=== PATIENT | female | born 1940 | race Caucasian/White ===

== ENCOUNTER 2016-05-17 18:39 | Inpatient (IN) | payer MEDICARE, BC ==
[~2016-05-17] VITALS: Ht 162.6 cm; Wt 68.9 kg
[2016-05-17] MEDS ORDERED: CEFTRIAXONE 1GM BAG (ER ONLY) 50 ML IV ONE ×2 (19:00→19:17)
[2016-05-17] MEDS ORDERED: IV NS 0.9% 1,000 ML BAG IV ONE (19:00)
[2016-05-17] MEDS ORDERED: IPRATROPIUM NEB FS 0.5 MG/2.5 ML AMPUL.NEB NEB ONE (19:00)
[2016-05-17] MEDS ORDERED: AZITHROMYCIN 500 MG in IV D5W 250 ML IV ONE (19:00)
[2016-05-17] MEDS ORDERED: ALBUTEROL FS 2.5 MG/3 ML VIAL.NEB NEB ONE (19:00)
[2016-05-17] MEDS ORDERED: ONDANSETRON HCL/PF 4 MG/2 ML VIAL IVP ONE (19:00)
[2016-05-17] MEDS ORDERED: ACETAMINOPHEN 325 MG TABLET PO ONE (19:00)
[2016-05-17] MEDS ORDERED: MORPHINE SULFATE INJ 2 MG/ML DISP.SYRIN IV ONE (19:00)
[2016-05-17 19:11] LABS: BASOPHILS # (AUTO) 0.6 /CMM (0.0-0.2); BASOPHILS % (AUTO) 3.8 % (0.0-2.0); DIFF TOTAL % 100 %; EOSINOPHILS % (AUTO) 0.2 % (0.0-6.0); HEMATOCRIT 44 % (33-45); HEMOGLOBIN 14.6 g/dL (11.5-14.8); LYMPHOCYTES # (AUTO) 1.5 /CMM (0.8-4.8); LYMPHOCYTES % (AUTO) 9.9 % (20.0-44.0); MEAN CORPUSCULAR HEMOGLOBIN 28 PG (26.0-33.0); MEAN CORPUSCULAR HGB CONC 34 g/dl (31.0-36.0); MEAN CORPUSCULAR VOLUME 85 fL (82-100); MONOCYTES % (AUTO) 6.9 % (2.0-12.0); NEUTROPHILS # (AUTO) 12.1 /CMM (1.8-8.9); NEUTROPHILS % (AUTO) 79.2 % (43.0-81.0); PLATELET COUNT (AUTO) 237 /CMM (150-450); RED BLOOD CELL COUNT(AUTO) 5.15 MIL/uL (4.0-5.2); WHITE BLOOD COUNT (AUTO) 15.2 K/uL (4.3-11.0)
[2016-05-17] MEDS ORDERED: ALBUTEROL FS 2.5 MG/3 ML VIAL.NEB ONE (19:14)
[2016-05-17] MEDS ORDERED: IPRATROPIUM NEB FS 0.5 MG/2.5 ML AMPUL.NEB ONE ×2 (19:14→23:45)
[2016-05-17] MEDS ORDERED: MORPHINE SULFATE INJ 2 MG/ML DISP.SYRIN ONE (19:16)
[2016-05-17] MEDS ORDERED: ACETAMINOPHEN 325 MG TABLET ONE (19:17)
[2016-05-17] MEDS ORDERED: ONDANSETRON HCL/PF 4 MG/2 ML VIAL ONE (19:17)
[2016-05-17] MEDS ORDERED: IV SET PRIMARY 1 EA INFUS.SET MC ONE (19:17)
[2016-05-17] MEDS ORDERED: IV NS 0.9% 1,000 ML ONE ×2 (19:17→23:01)
[2016-05-17 19:19] LABS: CALCIUM, SERUM 9.1 mg/dL (8.5-10.1); CREATININE 0.9 mg/dL (0.6-1.3); POTASSIUM 4.2 mmol/L (3.5-5.1)
[2016-05-17 19:36] LABS: LACTIC ACID 1.7 mmol/L (0.4-2.0)
[2016-05-17] MEDS ORDERED: IV SET PRIMARY PUMP SET 1 EA INFUS.SET MC ONE ×2 (19:55→23:01)
[2016-05-17] MEDS ORDERED: IV NS 0.9% 1,000 ML IV PRN (22:39)
[2016-05-17] MEDS: AZITHROMYCIN 500 MG in IV D5W 250 ML IV SCH (22:58)
[2016-05-17] MEDS ORDERED: ACETAMINOPHEN 325 MG TABLET PO PRN (23:00)
[2016-05-17] MEDS ORDERED: IPRATROPIUM NEB FS 0.5 MG/2.5 ML AMPUL.NEB NEB PRN (23:00)
[2016-05-17] MEDS ORDERED: Z GUARD REMEDY 2 OZ OINT TP PRN (23:00)
[2016-05-17] MEDS ORDERED: ZOLPIDEM TARTRATE 5 MG TABLET PO PRN (23:00)
[2016-05-17] MEDS ORDERED: ALBUTEROL HALF STRENGTH 1.25 MG/3 ML VIAL.NEB NEB PRN (23:00)
[2016-05-17] MEDS ORDERED: MAGNESIUM HYDROXIDE 30 ML UDC PO PRN (23:00)
[2016-05-17] MEDS ORDERED: ENOXAPARIN SODIUM 40 MG/0.4 ML DISP.SYRIN SQ SCH (23:00)
[2016-05-17] MEDS ORDERED: MAG HYDROX/AL HYDROX/SIMETH 30 ML UDC PO PRN (23:00)
[2016-05-17] MEDS ORDERED: ONDANSETRON HCL/PF 4 MG/2 ML VIAL IVP PRN (23:00)
[2016-05-17] MEDS ORDERED: SECONDARY IV SET 1 EA INFUS.SET MC ONE (23:01)
[2016-05-17] MEDS ORDERED: CEFTRIAXONE 1 G VIAL ONE (23:08)
[2016-05-17] MEDS ORDERED: IV D5W 50 ML IV ONE (23:08)
[2016-05-17] MEDS ORDERED: ENOXAPARIN SODIUM 40 MG/0.4 ML DISP.SYRIN SQ ONE (23:08)
[2016-05-17] MEDS: CEFTRIAXONE 1 G in IV D5W 50 ML IV SCH (23:15)
[2016-05-17] MEDS ORDERED: ALBUTEROL HALF STRENGTH 1.25 MG/3 ML VIAL.NEB ONE (23:45)
[2016-05-18 01:03] LABS: ADD UA MICROSCOPIC NO; KETONES,URINE NEGATIVE (NEGATIVE); LEUKOCYTE ESTERASE ,URINE NEGATIVE (NEGATIVE)
[2016-05-18 06:35] LABS: BASOPHILS % (AUTO) 0.4 % (0.0-2.0); DIFF TOTAL % 100 %; EOSINOPHILS % (AUTO) 0.4 % (0.0-6.0); HEMATOCRIT 36 % (33-45); HEMOGLOBIN 11.9 g/dL (11.5-14.8); LYMPHOCYTES # (AUTO) 1.9 /CMM (0.8-4.8); LYMPHOCYTES % (AUTO) 19.3 % (20.0-44.0); MEAN CORPUSCULAR HEMOGLOBIN 28 PG (26.0-33.0); MEAN CORPUSCULAR HGB CONC 33 g/dl (31.0-36.0); MEAN CORPUSCULAR VOLUME 85 fL (82-100); MONOCYTES # (AUTO) 0.7 /CMM (0.1-1.30); MONOCYTES % (AUTO) 7.5 % (2.0-12.0); NEUTROPHILS % (AUTO) 72.4 % (43.0-81.0); PLATELET COUNT (AUTO) 213 /CMM (150-450); RED BLOOD CELL COUNT(AUTO) 4.22 MIL/uL (4.0-5.2); WHITE BLOOD COUNT (AUTO) 9.7 K/uL (4.3-11.0)
[2016-05-18 07:17] LABS: CALCIUM, SERUM 8.3 mg/dL (8.5-10.1); CREATININE 0.8 mg/dL (0.6-1.3); PHOSPHORUS 3.7 mg/dL (2.5-4.9)
[2016-05-18 08:00] VITALS: BP 151/90
[2016-05-18 08:02] LABS: ALBUMIN 2.4 g/dL (3.4-5.0); BILIRUBIN,TOTAL 0.4 mg/dL (0.2-1.0); TOTAL PROTEIN, SERUM 6.3 g/dL (6.4-8.2)
[2016-05-18] MEDS: HYDROCODONE/APAP 5/325MG 1 EACH TABLET PO PRN ×2 (08:08→19:39)
[2016-05-18] MEDS ORDERED: DULO60CA45 PO (08:42)
[2016-05-18] MEDS ORDERED: ALPR2TAB7 PO (08:42)
[2016-05-18] MEDS ORDERED: SECONDARY IV SET 1 EA INFUS.SET MC ONE ×2 (11:56→22:12)
[2016-05-18] MEDS: Magnesium 1GM/D5W 100ML PREMIX 100 ML IV SCH ×2 (12:01→12:40)
[2016-05-18 16:00] VITALS: BP 166/90
[2016-05-18] MEDS ORDERED: ATENOLOL 25 MG TABLET PO ONE (16:00)
[2016-05-18 16:41] LABS: THYROID STIMULATING HORMONE 0.191 uIU/mL (0.358-3.74)
[2016-05-18 20:04] VITALS: BP 161/98
[2016-05-18] MEDS ORDERED: ENOXAPARIN SODIUM 40 MG/0.4 ML DISP.SYRIN SQ SCH (21:00)
[2016-05-18] MEDS: CEFTRIAXONE 1 G in IV D5W 50 ML IV SCH (22:19)
[2016-05-18] MEDS: AZITHROMYCIN 500 MG in IV D5W 250 ML IV SCH (22:54)
[2016-05-19 08:00] VITALS: BP 154/94
[2016-05-19 08:05] LABS: CALCIUM, SERUM 8.8 mg/dL (8.5-10.1); CREATININE 0.7 mg/dL (0.6-1.3); POTASSIUM 4.1 mmol/L (3.5-5.1)
[2016-05-19 08:12] VITALS: BP 154/94
[2016-05-19] MEDS ORDERED: ATENOLOL 25 MG TABLET PO SCH (09:00)
[2016-05-19] MEDS ORDERED: ATEN50TA PO (12:19)
[2016-05-19] MEDS ORDERED: HYDR-552 PO (12:19)
[2016-05-19] MEDS ORDERED: LEVO500T15 PO (12:19)
[2016-05-19] MEDS ORDERED: LACTOBACILLUS RHAMNOSUS GG 1 EACH CAP.SPRINK PO SCH (17:00)
== END 2016-05-19 15:00 | disposition home or self-care (01) | DRG 871 ==
LOC: ER 18:40 → MED 21:38
PROVIDERS: ADMIT Contractor; ATTEND Contractor
DX: A41.9 Sepsis, unspecified organism (principal); J15.9 Unspecified bacterial pneumonia; S22.41XA Multiple fractures of ribs, right side, initial encounter for closed fracture; W19.XXXA Unspecified fall, initial encounter; Y92.009 Unspecified place in unspecified non-institutional (private) residence as the place of occurrence of the external cause; I25.10 Atherosclerotic heart disease of native coronary artery without angina pectoris; E78.5 Hyperlipidemia, unspecified; K44.9 Diaphragmatic hernia without obstruction or gangrene; I10 Essential (primary) hypertension; R91.1 Solitary pulmonary nodule
CPT/HCPCS: 36415; 71100-TC; 71250-TC; 80048-TC; 80053-TC; 80061-TC; 81000-TC; 83605-TC; 83735-TC; 84100-TC; 84443-TC; 85025-TC; 87040-TC; 87081-TC; 87086-TC; 87400; 94799-TC; A4606; J0456; J0696; J1650; J2270; J2405; J3475; J7030; J7060; Z7610

== ENCOUNTER 2018-12-02 17:57 | Inpatient (IN) | payer MEDICARE, BC ==
[~2018-12-02] VITALS: Ht 160 cm; Wt 68.0 kg
[~2018-12-02 17:57] MED LIST: ALPR2TAB7 PO; ATEN50TA PO; DULO60CA45 PO; HYDR-4384 PO; LEVO500T75 PO
--- NOTE | 2018-12-02 18:30 | NUR ---
bib ra 78 YEAR OLD FEMALE c/o sob and weakness for the past 8 days, no relief from levaquin. ALERT AND ORIENTED X4 BREATHING EVEN UNLABORED WITH PRODUCTIVE COUGH NOTED. SKIN INTACT. NOTED MODEL MAKER APPRENTICE IV SITE LEFT WRSIT 20G. WAITING TO BE SEEN BY
[2018-12-02] MEDS ORDERED: ONDANSETRON HCL/PF 4 MG/2 ML VIAL ONE (18:56)
[2018-12-02] MEDS ORDERED: MORPHINE SULFATE INJ 4 MG/ML DISP.SYRIN ONE (18:56)
[2018-12-02] MEDS ORDERED: IPRATROPIUM NEB FS 0.5 MG/2.5 ML AMPUL.NEB NEB ONE (19:00)
[2018-12-02] MEDS ORDERED: ALBUTEROL FS 2.5 MG/3 ML VIAL.NEB CONTNEB ONE (19:00)
[2018-12-02] MEDS ORDERED: IV NS 0.9% 1,000 ML BAG IV ONE (19:00)
[2018-12-02] MEDS ORDERED: MORPHINE SULFATE INJ 2 MG/ML DISP.SYRIN IV ONE (19:00)
[2018-12-02] MEDS ORDERED: ONDANSETRON HCL/PF 4 MG/2 ML VIAL IVP ONE (19:00)
[2018-12-02] MEDS ORDERED: ALBUTEROL FS 2.5 MG/3 ML VIAL.NEB ONE (19:03)
[2018-12-02] MEDS ORDERED: IPRATROPIUM NEB FS 0.5 MG/2.5 ML AMPUL.NEB ONE (19:03)
--- NOTE | 2018-12-02 19:08 | NUR ---
X-RAY TECH AT BEDSIDE
--- NOTE | 2018-12-02 19:10 | NUR ---
RT AT BEDSIDE TO GIVEN PATIENT BREATHING TX ORDERED
[2018-12-02 19:15] LABS: BASOPHILS # (AUTO) 0.1 /CMM (0.0-0.2); BASOPHILS % (AUTO) 1.2 % (0.0-2.0); EOSINOPHILS % (AUTO) 5.2 % (0.0-6.0); HEMATOCRIT 40 % (33-45); HEMOGLOBIN 13.2 g/dL (11.5-14.8); LYMPHOCYTES # (AUTO) 1.3 /CMM (0.8-4.8); LYMPHOCYTES % (AUTO) 14.5 % (20.0-44.0); MEAN CORPUSCULAR HGB CONC 33 g/dl (31.0-36.0); MEAN CORPUSCULAR VOLUME 88 fL (82-100); MONOCYTES # (AUTO) 0.9 /CMM (0.1-1.30); MONOCYTES % (AUTO) 9.6 % (2.0-12.0); NEUTROPHILS # (AUTO) 6.4 /CMM (1.8-8.9); NEUTROPHILS % (AUTO) 69.5 % (43.0-81.0); PLATELET COUNT (AUTO) 235 /CMM (150-450); RED BLOOD CELL COUNT(AUTO) 4.52 MIL/uL (4.0-5.2); WHITE BLOOD COUNT (AUTO) 9.2 K/uL (4.3-11.0)
[2018-12-02 19:36] LABS: CALCIUM, SERUM 9.1 mg/dL (8.5-10.1); CARBON DIOXIDE 27 mmol/L (21-32); CHLORIDE 105 mmol/L (98-107); GLUCOSE 91 mg/dL (74-106); POTASSIUM 4.3 mmol/L (3.5-5.1); SODIUM SERUM 140 mmol/L (136-145); UREA NITROGEN, BLOOD 17 mg/dL (7-18)
[2018-12-02 19:49] LABS: ALANINE AMINOTRANSFERASE 11 U/L (12-78); ALBUMIN 2.7 g/dL (3.4-5.0); ALKALINE PHOSPHATASE 79 U/L (46-116); ASPARTATE AMINOTRANSFERASE 22 U/L (15-37); B-TYPE NATRIURETIC PEPTIDE 198 PG/ML (0-125); BILIRUBIN,DIRECT 0.1 mg/dL (0.0-0.2); BILIRUBIN,TOTAL 0.4 mg/dL (0.2-1.0)
--- NOTE | 2018-12-02 20:22 | NUR ---
FLU SWAB SENT TO LAB
--- NOTE | 2018-12-02 21:30 | NUR ---
CALLED NURSING SUP. FOR TELE BED
--- NOTE | 2018-12-02 21:30 | NUR ---
VIKTORIYA PAGED, TORITO AUGUST CATTLE BRANDER GEOINT ANALYST
[2018-12-02] MEDS ORDERED: IPRATROPIUM BROMIDE 14 GM INHALER (or 12.9 GM) IH PRN (22:00)
[2018-12-02] MEDS ORDERED: ALBUTEROL FS 2.5 MG/0.5 ML VIAL.NEB NEB PRN (22:00)
[2018-12-02] MEDS ORDERED: NITROGLYCERIN 0.4 MG/TAB BOTTLE SL PRN (22:00)
[2018-12-02] MEDS ORDERED: PIPERACILLIN /TAZOBACTAM 3.375 G in IV D5W 50 ML IV ONE (22:00)
[2018-12-02] MEDS ORDERED: ENOXAPARIN SODIUM 40 MG/0.4 ML DISP.SYRIN SQ SCH (22:00)
[2018-12-02] MEDS ORDERED: PIPERACILLIN /TAZOBACTAM 3.375 G VIAL IV ONE (22:05)
--- NOTE | 2018-12-02 22:08 | NUR ---
BED 308-7
--- NOTE | 2018-12-02 22:10 | NUR ---
REPORT GIVEN TO ALEXANDRIA REES FOR SANJIV
--- NOTE | 2018-12-02 22:49 | NUR ---
OYSTER WORKER ADMITTING NOTES RECEIVED PATIENT FROM ER VIA ZULEMA. DX. CAP;CHF EXACERBATION. PATIENT IS ALERT AND ORIENTED X3, VERBALLY RESPONSIVE, ABLE TO MAKE NEEDS KNOWN. FAMILY AT BEDSIDE. BREATHING EVEN AND UNLABORED. NO SOB NOTED. ON 2LPM VIA NC. DENIES ANY PAIN OR DISCOMFORT. NO CP. NO N/V. IV ON LEFT WRIST INTACT AND PATENT. SKIN DRY AND WARM TO TOUCH. AFEBRILE. ORIENTED TO THE USE OF UNIT AMENITIES. INSTRUCTED ON THE USE OF CALL LIGHT. SKIN ASSESSMENT DONE WITH NO SKIN ISSUES FOUND. ALL BELONGINGS ACCOUNTED FOR. PATIENT IS AMBULATORY, MOSTLY INDEPENDENT WITH ADLS. ALL OTHER NEEDS ATTENDED TO. SAFETY MEASURES IN PLACE. CALL LIGHT WITHIN REACH. WILL CONTINUE TO MONITOR.
[2018-12-02 23:00] VITALS: BP 108/52
--- NOTE | 2018-12-02 23:00 | NUR ---
ALEXANDRIA PICHARDO NOTES PATIENT REFUSE TO HAVE GOWN ON AND PREFERS HER OWN CLOTHES ON. Addendum: 12/03/18 at 0501 by CABRERA GORDON RN ERROR: ALEXANDRIA PICHARDO TELE
[2018-12-03] VITALS: BP 139/70
--- NOTE | 2018-12-03 00:15 | NUR ---
PIG MACHINE SUPERVISOR NOTES PER RN IMAGING RAMAN UGARTE TO RESCHEDULE PATIENT'S ZOSYN TO 0600 SINCE PATIENT ALREADY RECEIVED ONE AT 2213. ORDER NOTED AND CARRIED OUT. WILL CONTINUE TO MONITOR.
[2018-12-03] MEDS ORDERED: PIPERACILLIN /TAZOBACTAM 3.375 G VIAL IV ONE (04:43)
--- NOTE | 2018-12-03 05:00 | NUR ---
BATTERY PLATE ASSEMBLER NOTES OFFERED TO PUT ON GOWN BUT PATIENT REFUSED. STILL WANTS OWN CLOTHES ON.
--- NOTE | 2018-12-03 05:25 | NUR ---
DATA SYSTEMS ANALYST NOTES PATIENT REQUESTED FOR NORCO DUE TO LEFT HIP PAIN. ACHING 6/10 ON A PAIN SCALE. INFORMED ORTHOTIC AIDE TORITO REGARDING PATIENT'S REQUEST WITH ORDER FOR NORCO 5-325MG PO X1 ONLY. ORDER NOTED AND CARRIED OUT. WILL CONTINUE TO MONITOR.
[2018-12-03] MEDS: HYDROCODONE/APAP 5/325MG 1 EACH TABLET PO PRN (05:37)
[2018-12-03] MEDS ORDERED: PIPERACILLIN /TAZOBACTAM 3.375 G in IV D5W 50 ML IV SCH ×3 (06:00)
[2018-12-03 06:52] LABS: ALANINE AMINOTRANSFERASE 14 U/L (12-78); ALBUMIN 2.5 g/dL (3.4-5.0); ALKALINE PHOSPHATASE 69 U/L (46-116); ASPARTATE AMINOTRANSFERASE 20 U/L (15-37); BILIRUBIN,TOTAL 0.4 mg/dL (0.2-1.0); CALCIUM, SERUM 8.3 mg/dL (8.5-10.1); CARBON DIOXIDE 28 mmol/L (21-32); CHLORIDE 106 mmol/L (98-107); CREATININE 1.1 mg/dL (0.6-1.3); GLUCOSE 84 mg/dL (74-106); MAGNESIUM 1.7 mg/dL (1.8-2.4); PHOSPHORUS 4.3 mg/dL (2.5-4.9); POTASSIUM 4.3 mmol/L (3.5-5.1); SODIUM SERUM 141 mmol/L (136-145); TOTAL PROTEIN, SERUM 6.4 g/dL (6.4-8.2); UREA NITROGEN, BLOOD 14 mg/dL (7-18)
--- NOTE | 2018-12-03 06:52 | NUR ---
ARMED GUARD CLOSING NOTES PATIENT RESTING IN BED. NO ACUTE CHANGES THROUGHOUT SHIFT. SR ON TELE MONITOR. BREATHING EVEN AND UNLABORED. NO SOB NOTED. TOLERATING ROOM AIR. NO COMPLAINTS OF PAIN OR DISCOMFORT. NORCO EFFECTIVE. IV ON THE LEFT WRIST INTACT AND PATENT. STILL WANTS TO HAVE HER OWN CLOTHES ON. ALL OTHER NEEDS ATTENDED TO. SAFETY MEASURES IN PLACE. CALL LIGHT WITHIN REACH. WILL ENDORSE TO ONCOMING NURSE FOR SANJIV.
[2018-12-03 07:00] LABS: CHOLESTEROL 169 mg/dL (<200); HDL CHOLESTEROL 58 mg/dL (40-60); LDL 94 mg/dL (0-99); THYROID STIMULATING HORMONE 0.449 uIU/mL (0.358-3.74); TRIGLYCERIDES 51 mg/dL (30-150)
--- NOTE | 2018-12-03 07:20 | NUR ---
ROOF TRUSS MACHINE TENDER OPENING NOTE RECEIVED PT IN BED, ALERT AND ORIENTED X4. DENIES CHEST PAIN, SOB, N/V, BREATHING IS EVEN AND UNLABORED ON ROOM AIR. PT ON RIPPLER AND IS SINUS RHYTHM, HR 74 AT THIS TIME. LEFT WRIST #20G IS PATENT, CLEAN, DRY AND INTACT. ASPIRATION PRECAUTIONS MAINTAINED. ALL NEEDS ATTENDED TO. BED IS LOCKED AND IN LOWEST POSITION, SIDE RAILS UP X2, BED ALARM ON, CALL LIGHT AND POSSESSIONS WITHIN REACH.
[2018-12-03 08:00] VITALS: BP 137/72
[2018-12-03] MEDS ORDERED: IPRATROPIUM NEB FS 0.5 MG/2.5 ML AMPUL.NEB NEB PRN (08:00)
[2018-12-03] MEDS: ATENOLOL 50 MG TABLET PO SCH (08:45)
[2018-12-03] MEDS: Magnesium 1GM/D5W 100ML PREMIX 100 ML IV SCH ×2 (08:45→09:00)
[2018-12-03] MEDS: FUROSEMIDE 40 MG/4 ML VIAL IV SCH (08:45)
--- NOTE | 2018-12-03 08:45 | NUR ---
MS RN NOTE PT REPORTS THAT SHE NO LONGER TAKES CYMBALTA AND NOW TAKES EFFEXOR BUT DOES NOT KNOW THE DOSE, SHE STATED SHE CAN CALL HER DAUGHTER JOHAN AND ASK FOR AN UPDATED MEDICATION LIST. PT REPORTS SHE TAKES ELIQUIS BUT ALSO DOES NOT KNOW THE DOSE WELL. WILL FOLLOW UP REGARDING MEDICATIONS
[2018-12-03] MEDS ORDERED: FUROSEMIDE 40 MG/4 ML VIAL IV SCH (09:00)
[2018-12-03] MEDS ORDERED: DULOXETINE HCL 30 MG CAPSULE.DR PO SCH (09:00)
--- NOTE | 2018-12-03 09:30 | NUR ---
MS RN NOTE LEFT WRIST IV FOUND TO BE LEAKING, NEW IV INSERTED AT THE RIGHT FA #22G, MEDICATIONS AND FLUIDS RESTARTED ORDERED.
--- NOTE | 2018-12-03 10:00 | NUR ---
MS RN NOTE PT STATES SHE IS TRYING TO PRODUCE SPUTUM SAMPLE BUT HAS NOT BEEN ABLE TO YET.
--- NOTE | 2018-12-03 10:30 | NUR ---
MS RN NOTE PILLAR MAN REPORTED THAT PT ACCIDENTLY PULLED OUT IV WHEN GETTING UP TO GO TO RESTROOM, WILL REINSERT NEW ONE SHORTLY AND RESUME ORDERED MEDICATIONS.
[2018-12-03] MEDS ORDERED: Magnesium 1GM/D5W 100ML PREMIX PIGGYBACK IV ONE (11:30)
[2018-12-03] MEDS ORDERED: Magnesium 1GM/D5W 100ML PREMIX 100 ML IV SCH (11:30)
--- NOTE | 2018-12-03 11:58 | NUR ---
MS RN NOTE CALLED AND LEFT MESSAGE FOR DAUGHTER JOHAN TO REQUEST UPDATED MEDICATION LIST FOR PATIENT, PROVIDED UNIT CALL BACK INFORMATION, AWAITING CALL BACK.
--- NOTE | 2018-12-03 12:15 | NUR ---
MS RN NOTE PER DAUGHTER JOHAN SHE WILL BRING IN PATIENTS MEDICATION TODAY BETWEEN 2-3.
[2018-12-03] MEDS: PIPERACILLIN /TAZOBACTAM 3.375 G in IV D5W 100 ML IV SCH ×2 (13:36→20:02)
--- NOTE | 2018-12-03 15:25 | NUR ---
MS RN NOTE PT PROVIDED NURSE WITH UPDATE LIST OF HOME MEDICATIONS AFTER CALLING HER PHARMACY, PAGED MED RECON NURSE MARTHA TO UPDATE HOME MEDS, PER MARTHA HE WILL BE UP SHORTLY, INFORMED PRIMARY HOSPITALIST AND REQUESTED HE REVIEW HOME MEDS AND RESTART APPROPRIATE AFTER THEY ARE ENTERED IN.
[2018-12-03] MEDS ORDERED: PRAV40TA3 PO (15:37)
[2018-12-03] MEDS ORDERED: APIX5TAB4 PO (15:37)
[2018-12-03] MEDS ORDERED: HYDR-4354 PO (15:37)
[2018-12-03] MEDS ORDERED: PANT40TA2 PO (15:37)
[2018-12-03] MEDS ORDERED: VENL75CA56 PO (15:37)
[2018-12-03 16:00] VITALS: BP 115/60
[2018-12-03] MEDS ORDERED: APIXABAN 5 MG TABLET PO SCH ×2 (17:00)
--- NOTE | 2018-12-03 17:06 | NUR ---
MS RN NOTE PT STILL UNABLE TO PRODUCE SPUTUM SAMPLE.
[2018-12-03] MEDS: APIXABAN 5 MG TABLET PO SCH (17:25)
--- NOTE | 2018-12-03 18:15 | NUR ---
MS RN CLOSING NOTE PT IN BED, ALERT AND ORIENTED X4. DENIES CHEST PAIN, SOB, N/V, BREATHING IS EVEN AND UNLABORED ON ROOM AIR. RIGHT FA #20G IS PATENT, CLEAN, DRY AND INTACT. ASSISTED WITH ADLS, ASPIRATION PRECAUTIONS MAINTAINED. ALL NEEDS ATTENDED TO. BED IS LOCKED AND IN LOWEST POSITION, SIDE RAILS UP X2, BED ALARM ON, CALL LIGHT AND POSSESSIONS WITHIN REACH. WILL ENDORSE TO BRANCH OFFICER NURSE FOR CONTINUITY OF CARE.
--- NOTE | 2018-12-03 19:30 | NUR ---
RN MS OPENING NOTES RECEIVED PT IN BED, AWAKE ALERT ORIENTED X4. BREATHING EVEN AND UNLABORED ON 2L O2 NC. NO COMPLAINT OF PAIN OR DISCOMFORT AT THIS TIME. IV ACCESS ON THE R FA 20G. FAMILY AT BEDSIDE. BED IN LOWEST LOCKED POSITION, CALL LIGHT WITHIN REACH AT ALL TIMES WILL CONTINUE TO MONITOR FREQUENTLY.
[2018-12-03 20:00] VITALS: BP 110/72
[2018-12-03] MEDS ORDERED: ENOXAPARIN SODIUM 40 MG/0.4 ML DISP.SYRIN SQ SCH (21:00)
[2018-12-03] MEDS ORDERED: ATORVASTATIN 10 MG TABLET PO SCH (22:00)
[2018-12-04] MEDS: PIPERACILLIN /TAZOBACTAM 3.375 G in IV D5W 100 ML IV SCH ×2 (03:33→12:42)
[2018-12-04] MEDS: HYDROCODONE/APAP 5/325MG 1 EACH TABLET PO PRN (05:05)
--- NOTE | 2018-12-04 06:12 | NUR ---
RN MS CLOSING NOTES PT REMAINS IN BED, SLEEPING, EASILY AROUSED TO NAME CALL. BREATHING EVEN AND UNLABORED ON 2L O2 NC. IN NO APPARENT PAIN OR DISCOMFORT. IV ACCESS ON THE R FA 20G. BED IN LOWEST LOCKED POSITION, STABLE UNCHANGED CONDITION DURING SHIFT, CALL LIGHT WITHIN REACH AT ALL TIMES WILL ENDORSE TO DAY NURSE FOR SANJIV
[2018-12-04 06:19] LABS: BASOPHILS # (AUTO) 0.1 /CMM (0.0-0.2); BASOPHILS % (AUTO) 1.3 % (0.0-2.0); EOSINOPHILS % (AUTO) 8.6 % (0.0-6.0); HEMATOCRIT 40 % (33-45); HEMOGLOBIN 13.5 g/dL (11.5-14.8); LYMPHOCYTES # (AUTO) 2.3 /CMM (0.8-4.8); MEAN CORPUSCULAR HGB CONC 34 g/dl (31.0-36.0); MEAN CORPUSCULAR VOLUME 87 fL (82-100); MONOCYTES % (AUTO) 9.1 % (2.0-12.0); NEUTROPHILS # (AUTO) 6.5 /CMM (1.8-8.9); PLATELET COUNT (AUTO) 286 /CMM (150-450); RED BLOOD CELL COUNT(AUTO) 4.65 MIL/uL (4.0-5.2); WHITE BLOOD COUNT (AUTO) 10.9 K/uL (4.3-11.0)
[2018-12-04 06:48] LABS: BILIRUBIN,TOTAL 0.5 mg/dL (0.2-1.0); CALCIUM, SERUM 9.1 mg/dL (8.5-10.1); CREATININE 1.3 mg/dL (0.6-1.3); PHOSPHORUS 4.9 mg/dL (2.5-4.9); TOTAL PROTEIN, SERUM 7.6 g/dL (6.4-8.2)
--- NOTE | 2018-12-04 08:00 | NUR ---
MS RN RECEIVED ON BED, AWAKE,ALERT,ORIENTED X4,NOT IN ANY FORM OF DISTRESS, RESPIRATIONS EVEN AND UNLABORED, NO SOB NOTED, LUNGS ARE DIMINISHED, ABDOMEN SOFT,POSITIVE BOWEL SOUNDS,DENIES PAIN AT THIS TIME,ALL NEEDS ATTENDED.
[2018-12-04 08:17] VITALS: BP 119/63
[2018-12-04] MEDS ORDERED: VENLAFAXINE XR 75 MG CAP.SR.24H PO SCH (09:00)
[2018-12-04] MEDS ORDERED: PANTOPRAZOLE 40 MG TABLET.DR PO SCH (09:00)
--- NOTE | 2018-12-04 09:30 | NUR ---
MS IBRAHIM BREAKFAST SERVED,DUE MEDS GIVEN,TOLERATED WELL.
[2018-12-04] MEDS: FUROSEMIDE 40 MG/4 ML VIAL IV SCH (09:37)
[2018-12-04 09:38] VITALS: BP 119/63
[2018-12-04] MEDS: ATENOLOL 50 MG TABLET PO SCH (09:38)
[2018-12-04] MEDS: APIXABAN 5 MG TABLET PO SCH (09:51)
--- NOTE | 2018-12-04 11:00 | NUR ---
MS RN WAS SEEN BY SHELDON LOPEZ W/ ORDER TO GO HOME TODAY W/ PRESCRIPTION.
--- NOTE | 2018-12-04 11:40 | NUR ---
MS RN PRESCRIPTION FAXED TO PHARMACY ,PATIENT AWARE, SPOKE TO SHELLY PHARMACIST.
[2018-12-04] MEDS ORDERED: AZIT250T13 PO (13:11)
[2018-12-04] MEDS ORDERED: AMOX500C2 PO (13:11)
--- NOTE | 2018-12-04 15:33 | NUR ---
MS RN WAITING FOR HER DAUGHTER TO PICK HER UP.
--- NOTE | 2018-12-04 16:10 | NUR ---
MS RN PATIENT WENT HOME ACCOMPANIED BY DAUGHTER, ALL NEEDS ATTENDED.
== END 2018-12-04 16:00 | disposition home or self-care (01) | DRG 202 ==
LOC: ER 17:57 → TELE 21:54 → MED 12-03 08:28
PROVIDERS: ADMIT Registered Nurse; ATTEND Hospitalist
DX: J20.9 Acute bronchitis, unspecified (principal); I50.33 Acute on chronic diastolic (congestive) heart failure; E44.0 Moderate protein-calorie malnutrition; I11.0 Hypertensive heart disease with heart failure; E78.5 Hyperlipidemia, unspecified; Z86.711 Personal history of pulmonary embolism; E83.42 Hypomagnesemia; E66.9 Obesity, unspecified; R91.1 Solitary pulmonary nodule; Z68.26 Body mass index [BMI] 26.0-26.9, adult; K44.9 Diaphragmatic hernia without obstruction or gangrene; Z90.710 Acquired absence of both cervix and uterus; Z95.828 Presence of other vascular implants and grafts
CPT/HCPCS: 36415; 71045-TC; 74018; 80048-TC; 80053-TC; 80061-TC; 80076-TC; 82550-TC; 83605-TC; 83735-TC; 83880; 84100-TC; 84443-TC; 84484-TC; 85025-TC; 87040-TC; 87081-TC; 93307-TC; G0378; J1650; J1940; J2270; J2405; J2543; J3475; J7030; J7060

== ENCOUNTER 2019-04-02 13:01 | Inpatient (IN) | payer MEDICARE, BC ==
[~2019-04-02] VITALS: Ht 162.6 cm; Wt 65.8 kg
[~2019-04-02 13:01] MED LIST changes: -ALPR2TAB7 PO; +AMOX500C2 PO; +APIX5TAB4 PO; -ATEN50TA PO; +AZIT250T13 PO; -DULO60CA45 PO; +HYDR-4354 PO; -HYDR-4384 PO; -LEVO500T75 PO; +PANT40TA2 PO; +PRAV40TA3 PO; +VENL75CA56 PO
[2019-04-02] MEDS ORDERED: HYDROMORPHONE 1 MG/1 ML DISP.SYRIN ONE ×2 (13:40→14:40)
[2019-04-02] MEDS ORDERED: ONDANSETRON HCL/PF 4 MG/2 ML VIAL ONE (13:40)
--- NOTE | 2019-04-02 13:50 | NUR ---
BIB RA 878,TRIPPED/FELL AT A Moped PARKING LOT,LEFT KNEE SECURED W/ AIR SPLIT FENTANYL 50 MG IVP X 2 GIVEN COUPON COLLECTION CLERK. ON ROOM AIR, BREATHING EVENLY AND UNLABORED. CONNECTED TO THE MONITOR AND PULSE OX. KEPT COMFORTABLE, WILL CONTINUE TO MONITOR ACCORDINGLY.
--- NOTE | 2019-04-02 13:52 | NUR ---
WILLIE FITZGERALD ([facility]LY [facility], LATER [facility]). [phone].
[2019-04-02 13:54] LABS: BASOPHILS # (AUTO) 0.1 /CMM (0.0-0.2); EOSINOPHILS % (AUTO) 2.4 % (0.0-6.0); HEMATOCRIT 36 % (33-45); HEMOGLOBIN 11.6 g/dL (11.5-14.8); LYMPHOCYTES # (AUTO) 1.6 /CMM (0.8-4.8); LYMPHOCYTES % (AUTO) 18.1 % (20.0-44.0); MEAN CORPUSCULAR HGB CONC 33 g/dl (31.0-36.0); MEAN CORPUSCULAR VOLUME 89 fL (82-100); MONOCYTES # (AUTO) 0.6 /CMM (0.1-1.30); MONOCYTES % (AUTO) 6.9 % (2.0-12.0); NEUTROPHILS # (AUTO) 6.1 /CMM (1.8-8.9); NEUTROPHILS % (AUTO) 71.6 % (43.0-81.0); PLATELET COUNT (AUTO) 254 /CMM (150-450); RED BLOOD CELL COUNT(AUTO) 4.01 MIL/uL (4.0-5.2); WHITE BLOOD COUNT (AUTO) 8.6 K/uL (4.3-11.0)
[2019-04-02] MEDS ORDERED: CHOL200026 PO (13:55)
[2019-04-02] MEDS ORDERED: LISI10TA5 PO (13:56)
[2019-04-02] MEDS ORDERED: HYDROMORPHONE 1 MG/1 ML DISP.SYRIN IV ONE ×2 (14:00→15:00)
[2019-04-02] MEDS ORDERED: ONDANSETRON HCL/PF - ER 4 MG/2 ML VIAL IV ONE (14:00)
[2019-04-02 14:02] LABS: CALCIUM, SERUM 8.7 mg/dL (8.5-10.1); CREATININE 0.9 mg/dL (0.6-1.3)
--- NOTE | 2019-04-02 14:36 | NUR ---
CALLED NURSING SUP FOR M/S BED.
--- NOTE | 2019-04-02 14:42 | NUR ---
NURSING SUP GAVE M/S BED 308-2.
--- NOTE | 2019-04-02 14:46 | NUR ---
SECOND ATTEMPT OF CONTACTING ORTHO RESIDENTIAL SUBSTANCE ABUSE COUNSELOR. FAUZIA.
--- NOTE | 2019-04-02 14:59 | NUR ---
Report given to Monisha IBRAHIM for baylee.
[2019-04-02] MEDS ORDERED: ONDANSETRON HCL/PF 4 MG/2 ML VIAL IVP PRN (15:30)
--- NOTE | 2019-04-02 15:42 | NUR ---
Patient discharged to home in stable condition. Written and verbal after care instructions given. Patient verbalizes understanding of instruction.
--- NOTE | 2019-04-02 15:43 | NUR ---
admitted to [facility] going to room 308-2. Marc becerra DNP admitting
--- NOTE | 2019-04-02 15:50 | NUR ---
MS ADMITTING NOTES ADMITTED PT FROM ER WITH DX LT KNEE SUPRACONDYLAR FX.PT IS ALERT AND ORIENTED X4.VERBALLY RESPONSIVE.ROOM [id number] AND USE OF CALL LIGHT PROVIDED.PT IS UPSET AND CRIED THAT SHE FELL TWICE AFTER SHE JUST HAD HER RECENT LT HIP SX IN 2018. EMOTIONAL SUPPORT AND ACTIVE LISTENING PROVIDED.PT VERBALIZED SHE HAS A DAUGHTER WHO TAKES CARE OF HER WHO HAS DEMENTIA AND HAS TO TAKE CARE OF THE TWO OF THEM.AWAITING FOR DR JOSEPH(ORTHO) TO SEE THE PT.CALL LIGHT PLACED WITHIN REACH.
[2019-04-02 16:00] VITALS: BP 146/76
[2019-04-02 16:30] VITALS: BP 146/76
[2019-04-02] MEDS: HYDROMORPHONE INJ 2 MG/ML DISP.SYRIN IV PRN ×2 (16:44→22:00)
[2019-04-02] MEDS: PANTOPRAZOLE 40 MG VIAL IV SCH (16:44)
[2019-04-02] MEDS: IV NS 0.9% 1,000 ML IV PRN (17:47)
--- NOTE | 2019-04-02 18:30 | NUR ---
PT RESTING IN BED DENYING ANY PAIN OR DISTRESS.WITH ONGOING IVF OF NS AT 50 ML/HR INFUSING WELL.WILL MONITOR.ENDORSED TO NIGHT NURSE CARE.CALL LIGHT PLACED WITHIN REACH.
[2019-04-02 20:03] VITALS: BP 93/52
--- NOTE | 2019-04-02 20:05 | NUR ---
MS RN OPENING NOTES Patient currently resting in bed A/O x4, able to make all needs known. Stable on room air with breathing even and unlabored, no SOB noted. Currently no complaints of pain or discomfort. IV located on LFA #20 running NS @ 50ml/ hr. No signs of acute distress noted. Safety precautions are in place with bed in lowest position, breaks on, call light within reach, side rails up x2. Will continue to monitor.
[2019-04-02] MEDS: ENOXAPARIN SODIUM 30 MG/0.3 ML DISP.SYRIN SQ SCH (21:00)
[2019-04-02 21:54] VITALS: BP 116/60
--- NOTE | 2019-04-02 22:05 | NUR ---
MS RN NOTES DID NOT GIVE ENOXAPARIN SHOT PER MD DUE TO SURGERY. WILL CONTINUE TO MONITOR.
[2019-04-03] MEDS: HYDROMORPHONE INJ 2 MG/ML DISP.SYRIN IV PRN ×3 (03:11→18:01)
[2019-04-03 06:26] LABS: BASOPHILS # (AUTO) 0.1 /CMM (0.0-0.2); BASOPHILS % (AUTO) 1.1 % (0.0-2.0); EOSINOPHILS % (AUTO) 1.1 % (0.0-6.0); HEMATOCRIT 30 % (33-45); HEMOGLOBIN 10.4 g/dL (11.5-14.8); LYMPHOCYTES # (AUTO) 1.9 /CMM (0.8-4.8); LYMPHOCYTES % (AUTO) 19.1 % (20.0-44.0); MEAN CORPUSCULAR HGB CONC 34 g/dl (31.0-36.0); MEAN CORPUSCULAR VOLUME 89 fL (82-100); MONOCYTES # (AUTO) 1.1 /CMM (0.1-1.30); MONOCYTES % (AUTO) 10.8 % (2.0-12.0); NEUTROPHILS # (AUTO) 6.7 /CMM (1.8-8.9); NEUTROPHILS % (AUTO) 67.9 % (43.0-81.0); PLATELET COUNT (AUTO) 244 /CMM (150-450); RED BLOOD CELL COUNT(AUTO) 3.44 MIL/uL (4.0-5.2); WHITE BLOOD COUNT (AUTO) 9.9 K/uL (4.3-11.0)
[2019-04-03 06:33] LABS: CALCIUM, SERUM 8.6 mg/dL (8.5-10.1); CARBON DIOXIDE 25 mmol/L (21-32); CHLORIDE 106 mmol/L (98-107); CREATININE 1.4 mg/dL (0.6-1.3); GLUCOSE 116 mg/dL (74-106); MAGNESIUM 1.7 mg/dL (1.8-2.4); PHOSPHORUS 4.7 mg/dL (2.5-4.9); POTASSIUM 5.2 mmol/L (3.5-5.1); SODIUM SERUM 143 mmol/L (136-145); UREA NITROGEN, BLOOD 26 mg/dL (7-18)
[2019-04-03 06:36] LABS: CHOLESTEROL 173 mg/dL (<200); HDL CHOLESTEROL 81 mg/dL (40-60); LDL 80 mg/dL (0-99); TRIGLYCERIDES 68 mg/dL (30-150)
--- NOTE | 2019-04-03 06:37 | NUR ---
MS RN CLOSING NOTES PATIENT CURRENTLY RESTING IN BED A/O X4. ON 2L OF O2 VIA NC BREATHING EVEN AND UNLABORED, NO SOB NOTED. NO SIGNS OF ACUTE DISTRESS. NO CURRENT COMPLAINTS OF PAIN OR DISCOMFORT. IV LOCATED ON L HAND #20 RUNNING NS @ 50 ML/ HR. ALL NEEDS WERE MET THROUGHOUT THE NIGHT. PATIENT WAS KEPT CLEAN AND DRY. SAFETY PRECAUTIONS IN PLACE WITH BED IN LOWEST POSITION, CALL LIGHT WITHIN REACH, BREAKS ON, AND SIDE RAILS UP X2. WILL ENDORSE TO ONCOMING SHIFT ABOUT SANJIV.
--- NOTE | 2019-04-03 07:34 | NUR ---
RN OPENING NOTES Patient received on 2L nasal cannula, no sob noted, patient denies pain at this time and remains a/o x4. Regular diet and will be NPO at midnight tonight. L hand 20 NS @ 50 mo per hour. Patient denies discomfort with L knee. Bed at the lowest setting, call light within reach, side rails up x2.
[2019-04-03 08:00] VITALS: BP 113/48
[2019-04-03] MEDS: ENOXAPARIN SODIUM 30 MG/0.3 ML DISP.SYRIN SQ SCH (08:29)
[2019-04-03] MEDS: PANTOPRAZOLE 40 MG VIAL IV SCH (08:36)
[2019-04-03] MEDS: Magnesium 1GM/D5W 100ML PREMIX 100 ML IV SCH ×2 (10:50→11:53)
[2019-04-03 15:44] LABS: CARBON DIOXIDE 23 mmol/L (21-32); CHLORIDE 104 mmol/L (98-107); CREATININE 1.4 mg/dL (0.6-1.3); GLUCOSE 117 mg/dL (74-106); SODIUM SERUM 136 mmol/L (136-145); UREA NITROGEN, BLOOD 28 mg/dL (7-18)
[2019-04-03 16:00] VITALS: BP 105/56
--- NOTE | 2019-04-03 18:11 | NUR ---
RN CLOSING NOTES Patient remains on 2L nasal cannula, no sob noted, a/o x4 and denies pain at this time. Plan is to have patient NPO after midnight. L hand #20 with NS @ 50 ml per hour. ORIF surgery scheduled tomorrow. Bed at the lowest setting, call light within reach, side rails up x2. Will give report to NOC RN for SANJIV bedside.
[2019-04-03 19:30] VITALS: BP 125/88
--- NOTE | 2019-04-03 19:33 | NUR ---
ms lisa initial notes received report from am nurse while doing our rounds and saw pt in bed in sitting position with side rials x2 up and eating at this time . denies any pain or any discomfort. still with IVF of NS at 50ml/hr infusing on her left hand no redness noted. left knee still swollen from s/p trip and fall. Family at the bedside at this time and asking what time is the schedule for surgery. i told them possible the schedule will come out at midnight and i will let them know. pt stated its ok she will call them . will continue monitoring.
[2019-04-03 20:00] VITALS: BP 125/58
--- NOTE | 2019-04-04 | NUR ---
ms lisa notes pt sleeping comfortably in bed without any acute distress noted. IVF still infusing. no signs of any discomfort as well. pt NPO at this time,. for surgery in am. kept her warm and comfortable at all times. will continue monitoring. place call light at reach.
[2019-04-04] MEDS: IV NS 0.9% 1,000 ML IV PRN (00:11)
[2019-04-04] MEDS: HYDROMORPHONE INJ 2 MG/ML DISP.SYRIN IV PRN ×3 (04:09→20:09)
[2019-04-04 06:20] LABS: BASOPHILS % (AUTO) 0.4 % (0.0-2.0); EOSINOPHILS % (AUTO) 1.6 % (0.0-6.0); HEMATOCRIT 26 % (33-45); HEMOGLOBIN 8.7 g/dL (11.5-14.8); LYMPHOCYTES # (AUTO) 1.3 /CMM (0.8-4.8); LYMPHOCYTES % (AUTO) 13.5 % (20.0-44.0); MEAN CORPUSCULAR HGB CONC 33 g/dl (31.0-36.0); MEAN CORPUSCULAR VOLUME 88 fL (82-100); MONOCYTES # (AUTO) 1.3 /CMM (0.1-1.30); MONOCYTES % (AUTO) 12.7 % (2.0-12.0); NEUTROPHILS # (AUTO) 7.1 /CMM (1.8-8.9); NEUTROPHILS % (AUTO) 71.8 % (43.0-81.0); PLATELET COUNT (AUTO) 187 /CMM (150-450); RED BLOOD CELL COUNT(AUTO) 2.96 MIL/uL (4.0-5.2); WHITE BLOOD COUNT (AUTO) 9.9 K/uL (4.3-11.0)
[2019-04-04 06:25] LABS: ALBUMIN 2.4 g/dL (3.4-5.0); BILIRUBIN,TOTAL 0.3 mg/dL (0.2-1.0); CALCIUM, SERUM 8.1 mg/dL (8.5-10.1); CREATININE 1.1 mg/dL (0.6-1.3); MAGNESIUM 2.3 mg/dL (1.8-2.4); PHOSPHORUS 3.2 mg/dL (2.5-4.9); POTASSIUM 5.1 mmol/L (3.5-5.1); TOTAL PROTEIN, SERUM 5.9 g/dL (6.4-8.2)
--- NOTE | 2019-04-04 07:00 | NUR ---
ms vulnerability assessment analyst closing notes pt awake and alert and she 's aware that she's going for surgery today. Stable rick the night and slept well . pain meds given around 4 am for her pain.kept her warm and comfortable at all times. will endorse to am nurse for continuity of care. place call light at reach.
[2019-04-04] MEDS ORDERED: ANESTHESIA TRAY IN PYXIS 1 EA TRAY MC ONE (07:06)
[2019-04-04] MEDS ORDERED: BUPIVACAINE 0.5 % PF 150 MG/30 ML VIAL ONE (07:07)
[2019-04-04] MEDS ORDERED: BACITRACIN 50000 UNITS/VIAL ONE (07:07)
--- NOTE | 2019-04-04 07:11 | NUR ---
RN OPENING NOTES Patient received on 2L nasal cannula, no sob noted, patient denies pain at this time and remains a/o x4. patient is due for surgery and all paper works are signed. NPO since midnight. L hand 20 NS @ 50 ml per hour. Bed at the lowest setting, call light within reach, side rails up x2.
[2019-04-04] MEDS ORDERED: MIDAZOLAM HCL 2 MG/2ML VIAL ONE (07:36)
[2019-04-04] MEDS ORDERED: FENTANYL PF 100MCG/2ML AMPUL ONE (07:36)
[2019-04-04] MEDS ORDERED: BUPIVACAINE 0.25% 75 MG/30 ML VIAL ONE (07:37)
[2019-04-04] MEDS ORDERED: SEVOFLURANE 250 ML BOTTLE IH ONE (07:37)
[2019-04-04] MEDS ORDERED: DESFLURANE 240 ML BOTTLE IH ONE (07:37)
[2019-04-04] MEDS ORDERED: PROPOFOL 100 ML ONE (07:38)
[2019-04-04 08:06] VITALS: BP 106/53
[2019-04-04] MEDS: ENOXAPARIN SODIUM 30 MG/0.3 ML DISP.SYRIN SQ SCH (09:00)
[2019-04-04] MEDS: PANTOPRAZOLE 40 MG VIAL IV SCH (09:00)
[2019-04-04] MEDS ORDERED: NS 0.9% IV ONE (09:30)
[2019-04-04] MEDS ORDERED: TRANEXAMIC ACID IV ONE (09:30)
[2019-04-04] MEDS ORDERED: IV LR 1000 ML 1,000 ML IV PRN (11:30)
[2019-04-04 11:53] LABS: BASOPHILS % (AUTO) 0.3 % (0.0-2.0); EOSINOPHILS % (AUTO) 0.2 % (0.0-6.0); HEMATOCRIT 28 % (33-45); LYMPHOCYTES # (AUTO) 0.9 /CMM (0.8-4.8); LYMPHOCYTES % (AUTO) 5.9 % (20.0-44.0); MEAN CORPUSCULAR HGB CONC 32 g/dl (31.0-36.0); MEAN CORPUSCULAR VOLUME 90 fL (82-100); MONOCYTES # (AUTO) 0.7 /CMM (0.1-1.30); MONOCYTES % (AUTO) 4.4 % (2.0-12.0); NEUTROPHILS # (AUTO) 13.5 /CMM (1.8-8.9); NEUTROPHILS % (AUTO) 89.2 % (43.0-81.0); PLATELET COUNT (AUTO) 172 /CMM (150-450); RED BLOOD CELL COUNT(AUTO) 3.13 MIL/uL (4.0-5.2); WHITE BLOOD COUNT (AUTO) 15.1 K/uL (4.3-11.0)
[2019-04-04] MEDS: CEFAZOLIN 2 GM in IV D5W 100 ML IV SCH ×2 (14:59→22:48)
[2019-04-04 16:00] VITALS: BP 121/66
--- NOTE | 2019-04-04 19:15 | NUR ---
MS RN NOTES RECEIVED ON BED S/P KNEE SURGERY THIS MORNING,DRESSING INTACT AND DRY,DVT PUMP IN USED ON RIGHT LEG,ON GEL BED FOR SKIN MANAGEMENT.RAJAN CATH IN PLACE DRAINING YELLOWISH OUTPUT.IVF LR INFUSING VIA IV PUMP ON LEFT HAND,SITE PATENT.CLAIMED PAIN BUT WAS JUST MEDICATED BY DAY NURSE FOR PAIN.CALL LIGHT IN REACH,NEEDS ANTICIPATED.
--- NOTE | 2019-04-04 19:15 | NUR ---
RN CLOSING NOTES Patient remains on 2l nasal cannula, no sob noted, patient denies pain at this time. Patients lower leg elevated the whole time. Bed at the lowest setting, call light within reach, side rails up x2. Will give report to NOC RN for SANJIV bedside.
[2019-04-04 20:00] VITALS: BP 113/67
--- NOTE | 2019-04-04 20:09 | NUR ---
MS RN NOTES C/O LEFT KNEE PAIN 9/10 ON PAIN SCALE,MEDICATED WITH DILAUDID 1MG IV FOR SEVERE PAIN ORDERED.
[2019-04-04] MEDS: HYDROCODONE/APAP 5/325MG 1 EACH TABLET PO PRN (21:41)
--- NOTE | 2019-04-04 21:41 | NUR ---
MS RN NOTES STILL IN PAIN 7/10 ON PAIN SCALE, MEDICATED WITH NORCO 5/325MG,2 TAB PO ORDERED
--- NOTE | 2019-04-05 00:30 | NUR ---
MS RN NOTES NOTED PATIENT KEPT ON MOVING,IV SITE INFILTRATED,NEW SALINE LOCK PLACE ON LEFT WRIST #22,SAME IVF INFUSING.
[2019-04-05] MEDS: HYDROMORPHONE INJ 2 MG/ML DISP.SYRIN IV PRN ×3 (00:45→13:14)
--- NOTE | 2019-04-05 00:45 | NUR ---
MS RN NOTES PAIN MANAGEMENT C/O LEFT KNEE PAIN 8/10 ON PAIN SCALE.MEDICATED WITH DILAUDID 1MG IV ORDERED.
--- NOTE | 2019-04-05 06:06 | NUR ---
MS RN NOTES ON BED SLEEPING,AROUSABLE TO VERBAL STIMULI,NO SOB,IVF IN PROGRESS ON RIGHT WRIST,SITE PATENT.DVT PUMP IN USED ON RIGHT LEG.IV ABX TOLERATED,PAIN MANAGEMENT EFFECTIVE.IN NO ACUTE DISTRESS.CALL LIGHT IN REACH,NEEDS ATTENDED.WILL ENDORSE TO DAY NURSE FOR SANJIV.
[2019-04-05 06:58] LABS: BASOPHILS % (AUTO) 0.3 % (0.0-2.0); EOSINOPHILS % (AUTO) 0.2 % (0.0-6.0); HEMATOCRIT 22 % (33-45); HEMOGLOBIN 7.4 g/dL (11.5-14.8); LYMPHOCYTES # (AUTO) 2.1 /CMM (0.8-4.8); LYMPHOCYTES % (AUTO) 17.8 % (20.0-44.0); MEAN CORPUSCULAR HGB CONC 34 g/dl (31.0-36.0); MEAN CORPUSCULAR VOLUME 87 fL (82-100); MONOCYTES # (AUTO) 1.7 /CMM (0.1-1.30); MONOCYTES % (AUTO) 13.9 % (2.0-12.0); NEUTROPHILS # (AUTO) 8.1 /CMM (1.8-8.9); NEUTROPHILS % (AUTO) 67.8 % (43.0-81.0); PLATELET COUNT (AUTO) 178 /CMM (150-450); RED BLOOD CELL COUNT(AUTO) 2.52 MIL/uL (4.0-5.2); WHITE BLOOD COUNT (AUTO) 11.9 K/uL (4.3-11.0)
[2019-04-05 07:01] LABS: CALCIUM, SERUM 7.5 mg/dL (8.5-10.1); CREATININE 0.8 mg/dL (0.6-1.3); POTASSIUM 4.9 mmol/L (3.5-5.1)
--- NOTE | 2019-04-05 07:30 | NUR ---
RN OPENING NOTES RECEIVED PATIENT IN BED RESTING COMFORTABLY IN MODERATE HIGH BACK REST. A/O X4. NO SIGNS OF DISTRESS NOTED AT THIS TIME. IV ACCESS ON RIGHT WRIST #22, SL. PATENT AND INTACT. SAFETY MEASURES IN PLACE, BED IN LOW LOCKED POSITION WITH SIDE RAILS UP X2. CALL LIGHT WITHIN EASY REACH. WILL CONTINUE TO MONITOR.
[2019-04-05 08:00] VITALS: BP 103/64
[2019-04-05] MEDS: PANTOPRAZOLE 40 MG TABLET.DR PO SCH (08:12)
[2019-04-05] MEDS ORDERED: ENOXAPARIN SODIUM 40 MG/0.4 ML DISP.SYRIN SQ SCH (09:00)
--- NOTE | 2019-04-05 12:00 | NUR ---
RN NOTES REMOVED PATIENTS RAJAN CATHETER USING ASEPTIC TECHNIQUE, PATIENT VOIDED, NO SIGNS OF DISTRESS. WILL CONTINUE TO MONITOR.
[2019-04-05 15:07] LABS: BASOPHILS # (AUTO) 0.1 /CMM (0.0-0.2); BASOPHILS % (AUTO) 0.7 % (0.0-2.0); EOSINOPHILS % (AUTO) 0.8 % (0.0-6.0); HEMATOCRIT 24 % (33-45); HEMOGLOBIN 7.7 g/dL (11.5-14.8); LYMPHOCYTES % (AUTO) 15.5 % (20.0-44.0); MEAN CORPUSCULAR HGB CONC 33 g/dl (31.0-36.0); MEAN CORPUSCULAR VOLUME 89 fL (82-100); MONOCYTES # (AUTO) 1.8 /CMM (0.1-1.30); MONOCYTES % (AUTO) 13.7 % (2.0-12.0); NEUTROPHILS % (AUTO) 69.3 % (43.0-81.0); PLATELET COUNT (AUTO) 203 /CMM (150-450); RED BLOOD CELL COUNT(AUTO) 2.65 MIL/uL (4.0-5.2); WHITE BLOOD COUNT (AUTO) 12.9 K/uL (4.3-11.0)
[2019-04-05 16:08] VITALS: BP 111/64
[2019-04-05] MEDS: APIXABAN 5 MG TABLET PO SCH (16:58)
[2019-04-05] MEDS: HYDROCODONE/APAP 5/325MG 1 EACH TABLET PO PRN (17:04)
[2019-04-05] MEDS: ACETAMINOPHEN 325 MG TABLET PO PRN (18:38)
--- NOTE | 2019-04-05 18:41 | NUR ---
RN CLOSING NOTES PATIENT IN BED RESTING COMFORTABLY IN MODERATE HIGH BACK REST. A/O X4. NO SIGNS OF DISTRESS NOTED THROUGHOUT THE SHIFT. IV ACCESS ON RIGHT WRIST #22, SL. PATENT AND INTACT. SAFETY MEASURES IN PLACE, BED IN LOW LOCKED POSITION WITH SIDE RAILS UP X2. CALL LIGHT WITHIN EASY REACH. WILL ENDORSE TO CONVERSION WORKER NURSE FOR SANJIV.
--- NOTE | 2019-04-05 19:30 | NUR ---
MS RN NOTES RECEIVED ON BED A/O X4,S/O LEFT KNEE SURGERY YESTERDAY,DRESSING INTACT AND DRY,KNEE IMMOBILIZER IN USED.DVT PUMP IN USED ON RIGHT LEG,DAYSHIFT STARTED LOVENOX FOR DVT PROHYLAXIS.SALINE LOCK RIGHT WRIST INTACT AND PATENT.GEL BED IN USED FOR SKIN MANAGEMENT.PATIENT SAYS SHE FEELS BETTER TODAY.IN NO ACUTE DISTRESS.CALL LIGHT IN REACH,NEEDS ANTICIPATED.
[2019-04-05 20:00] VITALS: BP 108/75
--- NOTE | 2019-04-05 20:30 | NUR ---
MS RN NOTES SEEN BY DANDRE MEYER,NO NEW ORDERS NOTED.
[2019-04-05 21:19] VITALS: BP 108/75
--- NOTE | 2019-04-06 01:00 | NUR ---
MS RN NOTES SLEEPING,KEPT WARM AND COMFORTABLE.
--- NOTE | 2019-04-06 03:00 | NUR ---
MS RN NOTES SLEEPING,KEPT WARM
--- NOTE | 2019-04-06 06:00 | NUR ---
MS RN NOTES WELL RESTED THRU OUT SHIFT,NO COMPLAINTS OF PAIN,SNOORING WHILE ASLEEP.
--- NOTE | 2019-04-06 06:19 | NUR ---
MS RN NOTES SLEPT WELL,TO START AMBULATION TODAY BY PT,NONE WEIGHT BEARING ON LEFT LEG.FOR D/C PLANNING TO SNF FOR REHAB.IN NO ACUTE DISTRESS.WILL ENDORSE TO DAY NURSE FOR SANJIV.
[2019-04-06 06:53] LABS: BASOPHILS # (AUTO) 0.1 /CMM (0.0-0.2); BASOPHILS % (AUTO) 0.9 % (0.0-2.0); HEMATOCRIT 23 % (33-45); HEMOGLOBIN 7.6 g/dL (11.5-14.8); LYMPHOCYTES # (AUTO) 1.6 /CMM (0.8-4.8); LYMPHOCYTES % (AUTO) 15.2 % (20.0-44.0); MEAN CORPUSCULAR HGB CONC 34 g/dl (31.0-36.0); MEAN CORPUSCULAR VOLUME 89 fL (82-100); MONOCYTES # (AUTO) 1.3 /CMM (0.1-1.30); MONOCYTES % (AUTO) 12.3 % (2.0-12.0); NEUTROPHILS # (AUTO) 7.1 /CMM (1.8-8.9); NEUTROPHILS % (AUTO) 69.6 % (43.0-81.0); PLATELET COUNT (AUTO) 208 /CMM (150-450); RED BLOOD CELL COUNT(AUTO) 2.55 MIL/uL (4.0-5.2); WHITE BLOOD COUNT (AUTO) 10.2 K/uL (4.3-11.0)
[2019-04-06 06:57] LABS: CALCIUM, SERUM 8.1 mg/dL (8.5-10.1); CREATININE 0.8 mg/dL (0.6-1.3); POTASSIUM 4.5 mmol/L (3.5-5.1)
[2019-04-06 08:23] VITALS: BP 140/68
[2019-04-06] MEDS: PANTOPRAZOLE 40 MG TABLET.DR PO SCH (08:52)
[2019-04-06] MEDS: HYDROCODONE/APAP 5/325MG 1 EACH TABLET PO PRN ×2 (08:52→21:06)
[2019-04-06] MEDS: APIXABAN 5 MG TABLET PO SCH ×2 (08:52→16:17)
[2019-04-06] MEDS: LORAZEPAM INJ 2 MG/ML VIAL IV PRN (15:30)
[2019-04-06 16:28] VITALS: BP 120/90
--- NOTE | 2019-04-06 18:39 | NUR ---
RN CLOSING NOTES PATIENT IN BED RESTING COMFORTABLY IN MODERATE HIGH BACK REST. A/O X4. FAMILY AT BEDSIDE. NO SIGNS OF DISTRESS NOTED THROUGHOUT THE SHIFT. IV ACCESS ON RIGHT WRIST #22, SL. PATENT AND INTACT. SAFETY MEASURES IN PLACE, BED IN LOW LOCKED POSITION WITH SIDE RAILS UP X2. CALL LIGHT WITHIN EASY REACH. WILL ENDORSE TO ROLL FINISHER NURSE FOR SANJIV.
[2019-04-06 19:30] VITALS: BP 113/53
--- NOTE | 2019-04-06 19:43 | NUR ---
MS RN NOTES PATIENT IN BED, AWAKE, ALERT AND ORIENTED X 4. BREATHING EVEN AND UNLABORED ON 2L NC. DENIES ACUTE PAIN, NO ACUTE RESPIRATORY DISTRESS. IV ON R HAND 20G. CLEAN DRY AND INTACT. SHOWS NO SIGN OF INFILTRATION, NO REDNESS. SAFETY PRECAUTION IN PLACE. BED IN LOWEST POSITION, LOCKED, AND CALL LIGHT KEPT WITHIN REACH. WILL CONTINUE TO MONITOR.
[2019-04-06 20:00] VITALS: BP 113/53
--- NOTE | 2019-04-06 23:04 | NUR ---
MS RN NOTES PATIENT COMPLAINING OF PAIN 10/02. GIVEN NORCO PRN AT 2106. WILL CONTINUE TO MONITOR.
[2019-04-07 06:20] LABS: BASOPHILS # (AUTO) 0.1 /CMM (0.0-0.2); BASOPHILS % (AUTO) 0.7 % (0.0-2.0); EOSINOPHILS % (AUTO) 1.4 % (0.0-6.0); HEMATOCRIT 23 % (33-45); LYMPHOCYTES # (AUTO) 1.8 /CMM (0.8-4.8); LYMPHOCYTES % (AUTO) 15.2 % (20.0-44.0); MEAN CORPUSCULAR HGB CONC 34 g/dl (31.0-36.0); MEAN CORPUSCULAR VOLUME 89 fL (82-100); MONOCYTES # (AUTO) 1.2 /CMM (0.1-1.30); MONOCYTES % (AUTO) 10.5 % (2.0-12.0); NEUTROPHILS # (AUTO) 8.5 /CMM (1.8-8.9); NEUTROPHILS % (AUTO) 72.2 % (43.0-81.0); PLATELET COUNT (AUTO) 258 /CMM (150-450); RED BLOOD CELL COUNT(AUTO) 2.62 MIL/uL (4.0-5.2); WHITE BLOOD COUNT (AUTO) 11.8 K/uL (4.3-11.0)
[2019-04-07 06:25] LABS: CALCIUM, SERUM 8.2 mg/dL (8.5-10.1); CREATININE 0.8 mg/dL (0.6-1.3); POTASSIUM 4.4 mmol/L (3.5-5.1)
--- NOTE | 2019-04-07 06:44 | NUR ---
MS RN NOTES PATIENT IN BED, ASLEEP, ALERT AND ORIENTED X 4. BREATHING EVEN AND UNLABORED ON 2L NC. DENIES ACUTE PAIN, NO ACUTE RESPIRATORY DISTRESS. IV ON R HAND 20G. CLEAN DRY AND INTACT. SHOWS NO SIGN OF INFILTRATION, NO REDNESS. ALL DUE MEDICATIONS GIVEN. SAFETY PRECAUTION IN PLACE. BED IN LOWEST POSITION, LOCKED, AND CALL LIGHT KEPT WITHIN REACH. WILL ENDORSE TO ONCOMING NURSE.
--- NOTE | 2019-04-07 07:30 | NUR ---
MS/RN NOTE RECEIVED THE PATIENT IN BED. PATIENT IS ALERT AND ORIENTED X4. DENIES SOB. RESPIRATION REGULAR AND UNLABORED. IN ROOM AIR AND DENIES SOB. THE PATIENT COMPLAINS OF LEFT KNEE PAIN 07/03. WILL DO PAIN MANAGEMENT PER ORDER. LEFT KNEE IMMOBILIZER ON. PEDAL PULSES PRESENT. NO S/S POOR CIRCULATION NOTED. RIGHT HAND G 20 PATENT AND SALINE LOCKED. BED LOW AND LOCKED. SIDE RAILS UP X3. CALL LIGHT WITHIN REACH. WILL CONTINUE TO MONITOR.
[2019-04-07] MEDS: HYDROCODONE/APAP 5/325MG 1 EACH TABLET PO PRN ×3 (07:45→23:52)
[2019-04-07] MEDS: LORAZEPAM INJ 2 MG/ML VIAL IV PRN (07:48)
[2019-04-07 08:19] VITALS: BP 125/91
[2019-04-07] MEDS: PANTOPRAZOLE 40 MG TABLET.DR PO SCH (08:51)
[2019-04-07] MEDS: APIXABAN 5 MG TABLET PO SCH ×2 (08:55→16:38)
--- NOTE | 2019-04-07 10:24 | NUR ---
MS/RN NOTE RECEIVED ORDER FROM SAM GARCIA FOR SOCIAL SERVICE CONSULT PER PATIENT RELATED TO FAMILY RELATED. NOTED AND CARRIED OUT.
--- NOTE | 2019-04-07 15:03 | NUR ---
MS/RN NOTE SAM GARCIA IS MADE AWARE PATIENT VERBALIZING BEING CONSTIPATED. NEW ORDER OF MOM IS RECEIVED. THE ORDER IS READ BACK, VERIFIED. NOTED AND CARRIED OUT.
--- NOTE | 2019-04-07 15:21 | NUR ---
Social service consult requested by MARTIN Tran for family related issues. Per MD Notes, pt is a 78-year-old female patient who presented to the emergency department via EMS; status post mechanical ground-level fall while at [employer] parking lot. The patient denies dizziness prior to fall; no loss of consciousness after the fall. The patient stated that she tripped over the curb on the parking lot and landed on her left knee. The patient was brought by the paramedics to the emergency room for further management and care. The patient has past medical history of hypertension, hyperlipidemia, history of pulmonary emboli (currently on anticoagulation), anxiety, depression, and history of left hip arthroplasty years ago. QUALITY CONTROL SYSTEMS MANAGER met with the pt. bedside. Pt. is alert and oriented x 4. Pt. appears teary eyed and has a sad affect. Pt. stated, she is feeling overwhelmed with her family situation at home. Pt. expressed to QUALITY CONTROL SYSTEMS MANAGER, her daughter Nickie is fighting for custody from her ex- and pts' has dementia and she is his dietetic aide. Pt is concerned about the care of her , now that she is in the hospital and needs to go to a SNF for rehabilitation. QUALITY CONTROL SYSTEMS MANAGER provided pt. with active listening and supportive counseling. Pt. has a history of Depression and anxiety and was taking Effexor 150 mg at home prior to hospitalization. Pt. denies suicidal and homicidal ideations and states, she is just feeling overwhelmed. Pt's son Guanakito flew from [place] to see the pt. and pt's brother Dr. Carlos Arredondo is bedside as well. Dr. Arredondo seems to have concerns regarding pt's being left at home without a caregiver. Pt's daughter Nickie is caring for her father, however she is going into an alcohol/drug rehabilitation program tomorrow. requirements manager Zak was consulted and provided Dr. Arredondo with caregiving resources to assist for caring for pt's Serafin who has a diagnosis of Dementia. No other social service needs are requested at this time. QUALITY CONTROL SYSTEMS MANAGER is available, if needed.
[2019-04-07] MEDS ORDERED: MAGNESIUM HYDROXIDE 30 ML UDC PO PRN (15:30)
[2019-04-07 16:00] VITALS: BP 104/90
[2019-04-07 16:19] VITALS: BP 104/90
--- NOTE | 2019-04-07 18:02 | NUR ---
MS/RN NOTE THE PATIENT IS ALERT AND ORIENTED X4. IN ROOM AIR AND SATURATION IS AT 98%. DENIES SOB. RESPIRATION REGULAR AND UNLABORED. PATIENT DENIES PAIN AT THIS TIME. PEDAL PULSES PRESENT. NO S/S POOR CIRCULATION NOTED. RIGHT HAND G 20 PATENT AND SALINE LOCKED. BED LOW AND LOCKED. SIDE RAILS UP X3. CALL LIGHT WITHIN REACH. WILL ENDORSE TO SETTER MACHINE.
--- NOTE | 2019-04-07 19:30 | NUR ---
MS RN NOTE: PATIENT RESTING IN BED, NO ACUTE DISTRESS NOTED. BREATHING EVEN AND UNLABORED, NO SOB NOTED. IV TO RFA IN PLACE. BED LOCKED AND IN LOWEST POSITION, CALL LIGHT IN REACH. WILL CONTINUE TO MONITOR.
[2019-04-07] MEDS: ACETAMINOPHEN 325 MG TABLET PO PRN (21:09)
--- NOTE | 2019-04-08 00:05 | NUR ---
MS RN NOTE: PATIENT COMPLAINS OF PAIN TO LEFT KNEE, NORCO 5/325MG 2 TABS ORAL PER MD ORDER. WILL CONTINUE TO MONITOR.
--- NOTE | 2019-04-08 06:10 | NUR ---
MS RN NOTE: PATIENT RESTING IN BED, NO ACUTE DISTRESS NOTED. BREATHING EVEN AND UNLABORED, NO SOB NOTED. IV TO RFA IN PLACE. BED LOCKED AND IN LOWEST POSITION, CALL LIGHT IN REACH. WILL ENDORSE TO DAY NURSE TO CONTINUE WITH PLAN OF CARE.
[2019-04-08 08:00] VITALS: BP 113/77
--- NOTE | 2019-04-08 08:00 | NUR ---
MS RN RECEIVED ON BED, AWAKE,ALERT,ORIENTED X4,NOT IN ANY FORM OF DISTRESS, RESPIRATIONS EVEN AND UNLABORED,NO SOB NOTED, S/P LEFT LEG SURGERY W/ KNEE IMMOBILIZER,DENIES PAIN AT THIS TIME, WILL MONITOR PATIENT.
--- NOTE | 2019-04-08 09:05 | NUR ---
MS IBRAHIM BREAKFAST SERVED,DUE MEDS GIVEN,TOLERATED WELL.
[2019-04-08] MEDS: PANTOPRAZOLE 40 MG TABLET.DR PO SCH (09:10)
[2019-04-08] MEDS: LORAZEPAM INJ 2 MG/ML VIAL IV PRN (09:10)
[2019-04-08] MEDS: APIXABAN 5 MG TABLET PO SCH (09:12)
[2019-04-08] MEDS: HYDROCODONE/APAP 5/325MG 1 EACH TABLET PO PRN (09:29)
--- NOTE | 2019-04-08 10:00 | NUR ---
MS IBRAHIM. PATIENT READY FOR DISCHARGE, REPORT GIVEN TO LYNN IBRAIHM.
--- NOTE | 2019-04-08 10:30 | NUR ---
MS RN PATIENT WAS TRANSFERRED TO [facility],ALL NEEDS ATTENDED.
== END 2019-04-08 10:50 | DRG 480 ==
LOC: ER 13:03 → MED 15:20
PROVIDERS: ADMIT Nurse Practitioner Acute Care; ATTEND Nurse Practitioner Acute Care
PROC: 0QSC04Z Reposition Left Lower Femur with Internal Fixation Device, Open Approach (ICD-10-PCS; principal; 2019-04-04)
PROC: 0SPB04Z Removal of Internal Fixation Device from Left Hip Joint, Open Approach (ICD-10-PCS; 2019-04-04)
PROC: 30233N1 Transfusion of Nonautologous Red Blood Cells into Peripheral Vein, Percutaneous Approach (ICD-10-PCS; 2019-04-04)
DX: S72.452A Displaced supracondylar fracture without intracondylar extension of lower end of left femur, initial encounter for closed fracture (principal); N17.0 Acute kidney failure with tubular necrosis; M97.02XA Periprosthetic fracture around internal prosthetic left hip joint, initial encounter; M25.062 Hemarthrosis, left knee; M62.82 Rhabdomyolysis; W01.0XXA Fall on same level from slipping, tripping and stumbling without subsequent striking against object, initial encounter; Y92.481 Parking lot as the place of occurrence of the external cause; E78.5 Hyperlipidemia, unspecified; K44.9 Diaphragmatic hernia without obstruction or gangrene; E87.5 Hyperkalemia; D64.9 Anemia, unspecified; Z79.01 Long term (current) use of anticoagulants; Z86.711 Personal history of pulmonary embolism; R91.1 Solitary pulmonary nodule; S80.11XA Contusion of right lower leg, initial encounter; Z95.828 Presence of other vascular implants and grafts; I10 Essential (primary) hypertension
CPT/HCPCS: 36415; 71045-TC; 73552; 73564-TC; 73700-TC; 80048-TC; 80053-TC; 80061-TC; 82550-TC; 83735-TC; 84100-TC; 85025-TC; 85730-TC; 86850-TC; 86921-TC; 94799-TC; 97110-TC; 97116-TC; 97530-TC; A4216; A4217; A6209; C1713; C9113; G0378; J0690; J1100; J1170; J1650; J2060; J2250; J2405; J2704; J2710; J3010; J3475; J3490; J7030; J7040; J7060; J7120; P9016-BL

== ENCOUNTER 2020-07-25 19:04 | Inpatient (IN) | payer MEDICARE, BC ==
[~2020-07-25] VITALS: Ht 160 cm; Wt 69.4 kg
[~2020-07-25 19:04] MED LIST changes: -AMOX500C2 PO; -AZIT250T13 PO; +CHOL200026 PO; +LISI10TA29 PO; -PANT40TA2 PO
[2020-07-25] MEDS ORDERED: ONDANSETRON HCL/PF 4 MG/2 ML VIAL ONE (19:29)
[2020-07-25] MEDS ORDERED: IV NS 0.9% 500 ML BAG IV ONE (19:30)
[2020-07-25] MEDS ORDERED: ONDANSETRON HCL/PF 4 MG/2 ML VIAL IV ONE (19:30)
[2020-07-25] MEDS ORDERED: IV NS 0.9% 1,000 ML BAG IV ONE (20:00)
[2020-07-25] MEDS ORDERED: ONDANSETRON HCL/PF 4 MG/2 ML VIAL IVP ONE (20:00)
--- NOTE | 2020-07-25 20:22 | NUR ---
BRADEN FROM HOME TO ER BED 5. AAOX4. NOT IN RESP DISTRESS. BROUGHT INFOR A NEAR SYNCOPAL EPISODE. PER PT, SHE FELT IF SHE WAS GOING TO FAINT. ASSISTED HER SELF TO THE FLOOR TO PREVENT INJURY, DID NOT FALL. PT VERBALIZES THAT SHE IS NAUSEOUS. PT IS ALSO HYPOTENSIVE WITH SBP IN THE 70s AND TACHYCARDIC 120s. MD WAS AT THE BEDSIDE FOR EVAL. IV LINE ESTABLISHED ALREADY ON R AC 20G. PT RECEIVED 200ML OF NS FROM PARAMEDICS. PT ON MONITOR
--- NOTE | 2020-07-25 20:30 | NUR ---
PT NOTED WITH BLACK TARRY STOOL UPON PROVIDING PT CARE. GUIAC CARD SMEAR DONE AND SENT TO LAB. MD CARRINGTON
--- NOTE | 2020-07-25 20:35 | NUR ---
ALL UPDATES REGARDING PT WILL BE RELAYED TO BROTHER JACKIE ANNE [phone]
[2020-07-25 20:46] LABS: BASOPHILS # (AUTO) 0.1 /CMM (0.0-0.2); BASOPHILS % (AUTO) 0.8 % (0.0-2.0); EOSINOPHILS % (AUTO) 0.3 % (0.0-6.0); HEMATOCRIT 23 % (33-45); HEMOGLOBIN 7.5 g/dL (11.5-14.8); LYMPHOCYTES % (AUTO) 10.1 % (20.0-44.0); MEAN CORPUSCULAR HGB CONC 32 g/dl (31.0-36.0); MEAN CORPUSCULAR VOLUME 95 fL (82-100); MONOCYTES # (AUTO) 0.7 /CMM (0.1-1.30); MONOCYTES % (AUTO) 6.4 % (2.0-12.0); NEUTROPHILS # (AUTO) 8.5 /CMM (1.8-8.9); NEUTROPHILS % (AUTO) 82.4 % (43.0-81.0); PLATELET COUNT (AUTO) 227 /CMM (150-450); RED BLOOD CELL COUNT(AUTO) 2.44 MIL/uL (4.0-5.2); WHITE BLOOD COUNT (AUTO) 10.3 K/uL (4.3-11.0)
[2020-07-25 20:48] LABS: OCCULT BLOOD STOOL POSITIVE (NEGATIVE)
[2020-07-25 20:56] LABS: CALCIUM, SERUM 8.9 mg/dL (8.5-10.1); CARBON DIOXIDE 23 mmol/L (21-32); CHLORIDE 109 mmol/L (98-107); GLUCOSE 112 mg/dL (74-106); POTASSIUM 4.9 mmol/L (3.5-5.1); SODIUM SERUM 141 mmol/L (136-145); UREA NITROGEN, BLOOD 77 mg/dL (7-18)
[2020-07-25 21:02] LABS: ALANINE AMINOTRANSFERASE 18 U/L (12-78); ALBUMIN 2.4 g/dL (3.4-5.0); ALKALINE PHOSPHATASE 62 U/L (46-116); ASPARTATE AMINOTRANSFERASE 23 U/L (15-37); BILIRUBIN,DIRECT 0.1 mg/dL (0.0-0.2); BILIRUBIN,TOTAL 0.3 mg/dL (0.2-1.0); LIPASE 173 U/L (73-393); TOTAL PROTEIN, SERUM 5.7 g/dL (6.4-8.2)
--- NOTE | 2020-07-25 21:03 | NUR ---
URINE SPECIMENT COLLECTED AND DROPPED OFF AT LAB.
[2020-07-25 21:10] LABS: EOSINOPHILS % (MANUAL) 2 % (0-4); LYMPHOCYTES % (MANUAL) 13 % (16-48); NEUTROPHILS % (MANUAL) 85 (42-76)
[2020-07-25] MEDS ORDERED: IV NS 0.9% 1,000 ML IV PRN (21:30)
[2020-07-25] MEDS ORDERED: MAGNESIUM HYDROXIDE 30 ML UDC PO PRN (21:30)
[2020-07-25] MEDS ORDERED: Z GUARD REMEDY 2 OZ OINT TP PRN (21:30)
[2020-07-25] MEDS ORDERED: PANTOPRAZOLE 40 MG VIAL IV ONE (21:30)
[2020-07-25] MEDS ORDERED: ZOLPIDEM TARTRATE 5 MG TABLET PO PRN (21:30)
[2020-07-25] MEDS ORDERED: CEFTRIAXONE 1GM BAG (ER ONLY) 1 GM/50 ML PIGGYBACK IV ONE (21:30)
[2020-07-25] MEDS ORDERED: MAG HYDROX/AL HYDROX/SIMETH 30 ML UDC PO PRN (21:30)
[2020-07-25] MEDS ORDERED: ACETAMINOPHEN 325 MG TABLET PO PRN (21:30)
--- NOTE | 2020-07-25 21:30 | NUR ---
TELE 309-2
[2020-07-25 21:35] LABS: BILIRUBIN,URINE NEGATIVE (NEGATIVE); COLOR,URINE YELLOW (YELLOW); LEUKOCYTE ESTERASE ,URINE SMALL (NEGATIVE); NITRITE, URINE POSITIVE (NEGATIVE); PH,URINE 5.5 (5.0-8.0); PROTEIN,URINE NEGATIVE (NEGATIVE); UGLUCOSE NEGATIVE (NEGATIVE); UROBILINOGEN,URINE 0.2 EU/dL (0.2)
--- NOTE | 2020-07-25 21:40 | NUR ---
Report given ALEXANDRIA King for baylee.
[2020-07-25] MEDS ORDERED: PANTOPRAZOLE 40 MG VIAL ONE (21:42)
[2020-07-25] MEDS ORDERED: CEFTRIAXONE 1GM BAG (ER ONLY) 50 ML IV ONE (21:42)
--- NOTE | 2020-07-25 21:47 | NUR ---
MS RN NOTES REPORT GIVEN BY ER. ROBERTO CARLOS
--- NOTE | 2020-07-25 21:51 | NUR ---
pt's brother Carlos updtaed regarding sister. Pt's brother aware that the pt is getting admitted. He will be updating the rest of the pt's family
[2020-07-25 21:55] LABS: BACTERIA,URINE 4+ /HPF (None Seen); RBC,URINE 51-80 /HPF (0-2); SQUAMOUS EPITHELIAL CELL,UR 0-2 /HPF (None Seen)
[2020-07-25 22:00] VITALS: BP 105/75
--- NOTE | 2020-07-25 22:22 | NUR ---
PT TRANSPORTED TO UNIT ON [facility] WITH EMT AND RN AT BEDSIDE W. ACLS PROTOCOL. NAD NOTED DURING TRANSPORT.
--- NOTE | 2020-07-25 22:37 | NUR ---
MS RN NOTES PATIENT BROUGHT IN VIA GURNEY AT AROUND 2200. A/OX4. IN A LOT OF PAIN AND DISTRESS. NO SOB. VS FOLLOW: BP- 105/75, PULSE 105, RR- 18, O2 SAT- 95, TEMP- 97.8, WT- 153.3 LBS. TELE MONITOR BOX IN PLACE [address]. R. AC G #18 RUNNING [employer]. BELONGINGS LIST CHARTED. CONSENT FOR BLOOD SIGNED AND CHARTED. AWAITING BLOOD FOR TRANSFUSION. WILL CONTINUE TO MONITOR.
[2020-07-26] VITALS (11 sets, daily range): BP systolic 93–126; BP diastolic 44–72
[2020-07-26] MEDS: ONDANSETRON HCL/PF 4 MG/2 ML VIAL IVP PRN ×2 (00:36→07:41)
--- NOTE | 2020-07-26 00:50 | NUR ---
SENIOR MANAGER QUALITY ASSURANCE NOTES PATIENT HAS ORDER OF BLOOD TRANSFUSION BY ER DOCTOR. LEBRON CHARGE NURSE SAID TO TEXT MARTIN PAGE TO VERIFY IF SHE STILL WANTS THE BLOOD. HGB 7.5, HCT 23, RBC 2.44. CAMILO ORDERED H/H STAT. ORDER CARRIED OUT. WILL CONTINUE TO ASSES. ALSO PATIENT ASKED ICE CHIP, CAMILO APPROVED. PATIENT GIVEN ICE CHIP.
--- NOTE | 2020-07-26 00:50 | NUR ---
MS RN NOTES CONT. PATIENT IV LINE ON R. AC INFILTRATED. NOTIFIED CHARGE NURSE AND TANK DRIVER DOCTOR. PICTURE TAKEN AND CHARTED. ARM ELEVATED AND ICE PACK IN PLACE. NEW LINE ON R. WRIST #[address] PATIENT ALSO C/O NAUSEA. ZOFRAN 4 MG GIVEN PRN. WILL REASSESS.
[2020-07-26 01:22] LABS: HEMOGLOBIN 7.2 g/dL (11.5-14.8)
--- NOTE | 2020-07-26 02:25 | NUR ---
AGENT PRODUCER NOTES PATIENT C/O SOB. PATIENT PUT ON PRN OXYGEN 2LPM VIA NC. 97% O2 SATURATION. WILL CONTINUE TO MONITOR.
--- NOTE | 2020-07-26 02:33 | NUR ---
CHERRY DIPPER NOTES PATIENT IN STABLE CONDITION AFTER PUT IN OXYGEN. SATURATING 98% IN 2L VIA NC. WILL CONTINUE TO MONITOR.
--- NOTE | 2020-07-26 03:55 | NUR ---
COMMUNICATION CONSULTANT NOTES PRBC STARTED AT THIS TIME. VS STABLE. WILL MONITOR FOR REACTION.
--- NOTE | 2020-07-26 04:13 | NUR ---
CONVEYOR LINE BAKERY WORKER NOTES PATIENT NO TRANSFUSION REACTION. VS FOLLOW: BP: 126/56, HR- 108, T- 97.9, O2 SAT- 98. WILL CONTINUE TO MONITOR.
--- NOTE | 2020-07-26 05:16 | NUR ---
DIRECTOR DERMATOLOGY NOTES PATIENT VS AFTER 60 MINUTES: BP: 93/62, P-105, 02 SAT- 98, T- 98.0. WILL CONTINUE TO MONITOR.
--- NOTE | 2020-07-26 07:23 | NUR ---
DATA SECURITY ADMINISTRATOR OPENING NOTES RECEIVED PATIENT IN BED RESTING. PATIENT IS A/OX 4. PATIENT IS BREATHING EVENLY AND UNLABORED ON 2LPM VIA NASAL CANNULA. NO SIGNS OF DISTRESS NOTED. PATIENT HAS RIGHT WRIST IV ACCESS RUNNING NS @ 75ML/HR. PATIENT IS STATUS POST BLOOD TRANSFUSION, TOLERATED WELL. WILL MONITOR FOR POST TRANSFUSION REACTION. PATIENT'S SKIN IS INTACT EXCEPT SACRAL REDNESS AND RAC INFILTRATE SWELLING. PATIENT IS ON TELE MONITOR SHOWING SINUS TACHY 108. SAFETY MEASURES ARE IN PLACE, BED LOW LOCKED AND CALL LIGHT WITHIN REACH. WILL CONTINUE TO MONITOR.
--- NOTE | 2020-07-26 07:26 | NUR ---
RN CLOSING NOTES PATIENT IN BED WITH EYES CLOSED. NO S/S OF DISTRESS, TOLERATING 2LPM OF OXYGEN. TELE MONITOR BEEN READING ST. PRBC FINISHED TRANSFUSING. IT WAS CHARTED. R. WRIST IV LINE RUNNING NS @75ML/HR NOW. TALKED TO PATIENT SISTER CRYING FOR SOME NURSE TALKED TO HER VERY RUDELY IN ER, GAVE HER AN UPDATE WITH THE PATIENTS APPROVAL. SAFETY KEPT IN PLACE THE WHOLE SHIFT: BED IN LOWEST, LOCKED POSITION. CALL LIGHT WITHIN REACH. GAVE REPORT TO MORNING SHIFT NURSE.
[2020-07-26] MEDS: LISINOPRIL (10MG) 10 MG TABLET PO SCH (08:38)
[2020-07-26] MEDS: CHOLECALCIFEROL 1,000 UNIT TABLET (VIT D3) PO SCH (08:38)
[2020-07-26] MEDS: VENLAFAXINE XR 75 MG CAP.SR.24H PO SCH (08:38)
[2020-07-26] MEDS: PANTOPRAZOLE 40 MG VIAL IV SCH ×2 (08:42→16:27)
[2020-07-26 09:32] LABS: BASOPHILS # (AUTO) 0.1 /CMM (0.0-0.2); BASOPHILS % (AUTO) 0.6 % (0.0-2.0); EOSINOPHILS % (AUTO) 0.4 % (0.0-6.0); HEMATOCRIT 24 % (33-45); HEMOGLOBIN 7.8 g/dL (11.5-14.8); LYMPHOCYTES # (AUTO) 1.6 /CMM (0.8-4.8); LYMPHOCYTES % (AUTO) 19.3 % (20.0-44.0); MEAN CORPUSCULAR HGB CONC 33 g/dl (31.0-36.0); MEAN CORPUSCULAR VOLUME 92 fL (82-100); MONOCYTES # (AUTO) 0.7 /CMM (0.1-1.30); MONOCYTES % (AUTO) 8.5 % (2.0-12.0); NEUTROPHILS % (AUTO) 71.2 % (43.0-81.0); PLATELET COUNT (AUTO) 196 /CMM (150-450); RED BLOOD CELL COUNT(AUTO) 2.56 MIL/uL (4.0-5.2); WHITE BLOOD COUNT (AUTO) 8.5 K/uL (4.3-11.0)
[2020-07-26 10:32] LABS: CALCIUM, SERUM 8.6 mg/dL (8.5-10.1); CREATININE 0.9 mg/dL (0.6-1.3); MAGNESIUM 1.8 mg/dL (1.8-2.4); PHOSPHORUS 3.2 mg/dL (2.5-4.9); POTASSIUM 5.2 mmol/L (3.5-5.1)
[2020-07-26] MEDS ORDERED: ANESTHESIA TRAY IN PYXIS 1 EA TRAY MC ONE (12:07)
[2020-07-26] MEDS ORDERED: FAMOTIDINE/PF INJ 20 MG/2 ML VIAL IV ONE (12:43)
[2020-07-26] MEDS ORDERED: ONDANSETRON HCL/PF 4 MG/2 ML VIAL ONE (14:02)
--- NOTE | 2020-07-26 14:24 | NUR ---
RN NOTES RECEIVED PATIENT BACK FROM EGD PROCEDURE IN STABLE CONDITION. VITAL SIGNS STABLE 103/71 HR 86 RR 19 TEMP 97.6 AND O2 SAT 100 % ON 2LPM. ORDERS TO ADVANCE DIET TO CLEAR LIQUID. WILL CONTINUE TO MONITOR
[2020-07-26] MEDS: HYDROCODONE/APAP 5/325MG TABLET PO PRN (14:29)
--- NOTE | 2020-07-26 18:30 | NUR ---
MS RN CLOSING NOTES PATIENT IN BED RESTING. PATIENT IS A/OX 4. PATIENT IS BREATHING EVENLY AND UNLABORED ON ROOM AIR, BUT DOES HAVE PRN OXYGEN ORDER IF NEEDED. NO SIGNS OF DISTRESS NOTED AT THIS TIME. PATIENT HAS RIGHT WRIST IV ACCESS RUNNING NS @ 75ML/HR. PATIENT IS STATUS POST EGD PERFORMED TODAY, PATIENT TOLERATED WELL. PATIENT'S SKIN IS INTACT EXCEPT SACRAL REDNESS. PATIENT'S MEDICATION WERE GIVEN AND NEEDS MET. SAFETY MEASURES ARE IN PLACE, BED LOW LOCKED AND CALL LIGHT WITHIN REACH. WILL ENDORSE TO NEXT SHIFT
--- NOTE | 2020-07-26 19:30 | NUR ---
MS RN OPENING NOTES PATIENT WAS LAST SEEN AWAKE IN BED. PATIENT IS A/OX 4. PATIENT IS ON ROOM AIR AND IN NO RESPIRATORY DISTRESS. PATIENT HAS AN ORDER FOR OXYGEN IF NEEDED. PATIENT HAS AN IV ACCESS ON HER RIGHT WRIST RUNNING NS @ 50 ML/HR. PATIENT'S SKIN IS INTACT EXCEPT FOR SACRAL REDNESS. ALL SAFETY PRECAUTIONS ARE KEPT IN PLACE. SIDE RAILS UP X3. BED ALARM ON. BED IS LOCKED. CALL LIGHT IS WITHIN REACH. WILL CONTINUE TO MONITOR THE PATIENT.
[2020-07-26] MEDS: CEFTRIAXONE 1 G in IV D5W 50 ML IV SCH (21:14)
[2020-07-26] MEDS: ATORVASTATIN 10 MG TABLET PO SCH ×2 (21:15→21:19)
--- NOTE | 2020-07-26 21:17 | NUR ---
MS RN NOTES PATIENT WAS GIVEN ATORVASTATIN 10 MG PO AT 2115 FOR THE SCHEDULED TIME FOR 07/26/2020 BEDTIME MEDICATIONS.
--- NOTE | 2020-07-26 22:15 | NUR ---
report from amarjit nolan. will continue care.
[2020-07-27] VITALS (10 sets, daily range): BP systolic 101–144; BP diastolic 50–103
--- NOTE | 2020-07-27 02:52 | NUR ---
RECEIVED REPORTS FROM [place] AVENDAÑO FOR CONTINUITY OF CARE.
--- NOTE | 2020-07-27 02:57 | NUR ---
CHECKED PATIENT, ASLEEP, EASILY AROUSABLE. NO S/S OF DISTRESS NOTED. CALL LIGHT WITHIN REACH. BED ALARM ON. BED IN LOWEST AND LOCKED POSITION. HOB ELEVATED.
[2020-07-27 06:23] LABS: BASOPHILS # (AUTO) 0.1 /CMM (0.0-0.2); EOSINOPHILS % (AUTO) 3.5 % (0.0-6.0); HEMATOCRIT 21 % (33-45); LYMPHOCYTES # (AUTO) 1.7 /CMM (0.8-4.8); LYMPHOCYTES % (AUTO) 30.8 % (20.0-44.0); MEAN CORPUSCULAR HGB CONC 34 g/dl (31.0-36.0); MEAN CORPUSCULAR VOLUME 93 fL (82-100); MONOCYTES # (AUTO) 0.5 /CMM (0.1-1.30); MONOCYTES % (AUTO) 8.6 % (2.0-12.0); NEUTROPHILS % (AUTO) 56.1 % (43.0-81.0); PLATELET COUNT (AUTO) 163 /CMM (150-450); RED BLOOD CELL COUNT(AUTO) 2.27 MIL/uL (4.0-5.2); WHITE BLOOD COUNT (AUTO) 5.4 K/uL (4.3-11.0)
--- NOTE | 2020-07-27 06:59 | NUR ---
RECEIVED A CRITICAL RESULT OF HEMOGLOBIN=7.0,RELAYED RESULT TO MARTIN PAGE.
[2020-07-27 07:11] LABS: CALCIUM, SERUM 8.3 mg/dL (8.5-10.1); CREATININE 0.9 mg/dL (0.6-1.3); MAGNESIUM 1.7 mg/dL (1.8-2.4); PHOSPHORUS 2.9 mg/dL (2.5-4.9); POTASSIUM 4.2 mmol/L (3.5-5.1)
--- NOTE | 2020-07-27 07:40 | NUR ---
MS RN OPENING NOTES PATIENT AWAKE IN BED. PATIENT IS A/OX 4. PATIENT IS ON ROOM AIR AND IN NO RESPIRATORY DISTRESS. ALL SAFETY PRECAUTIONS ARE KEPT IN PLACE. SIDE RAILS UP X3. BED ALARM ON. BED IS LOCKED. CALL LIGHT IS WITHIN REACH. WILL CONTINUE TO MONITOR THE PATIENT.
[2020-07-27] MEDS: LISINOPRIL (10MG) 10 MG TABLET PO SCH (08:38)
[2020-07-27] MEDS: PANTOPRAZOLE 40 MG VIAL IV SCH ×2 (08:39→16:56)
[2020-07-27] MEDS: VENLAFAXINE XR 75 MG CAP.SR.24H PO SCH (08:39)
[2020-07-27] MEDS: CHOLECALCIFEROL 1,000 UNIT TABLET (VIT D3) PO SCH (08:39)
[2020-07-27 10:09] LABS: EOSINOPHILS % (MANUAL) 7 % (0-4); LYMPHOCYTES % (MANUAL) 30 % (16-48); MONOCYTES % (MANUAL) 6 % (0-11.0); MYELOCYTES % 1 % (0-0); NEUTROPHILS % (MANUAL) 56 (42-76)
--- NOTE | 2020-07-27 10:33 | NUR ---
MS RN NOTES PATIENT COMPLAINED OF HAVING ANXIETY AND NERVOUSNESS. CONTACTED DR. REBECCA MD ORDERED ATIVAN 0.25MG PO X1 ONLY. NOTED AND CARRIED OUT. WILL CONTINUE TO MONITOR.
[2020-07-27] MEDS ORDERED: LORAZEPAM 0.5 MG TABLET PO ONE (11:00)
[2020-07-27 11:32] LABS: HEMOGLOBIN 7.5 g/dL (11.5-14.8)
[2020-07-27] MEDS: Magnesium 1GM/D5W 100ML PREMIX 100 ML IV SCH ×2 (12:04→13:49)
--- NOTE | 2020-07-27 12:37 | NUR ---
MS/RN NOTES DR. FERNANDEZ ORDER PHYSICAL THERAPY, PSYCH EVAL AND BLOOD TRANSFUSION. NOTED AND CARRIED OUT.
--- NOTE | 2020-07-27 12:40 | NUR ---
MS/RN NOTES DR. CRAIN ORDER ADVANCE DIET TOLERATED TO SOFT DIET. NOTED AND CARRIED OUT.
[2020-07-27] MEDS: busPIRone 5 MG TABLET PO SCH (16:56)
--- NOTE | 2020-07-27 18:48 | NUR ---
MS RN CLOSING NOTES PATIENT IS ALERT AND ORIENTED X4. NO SOB NOTED. ON ROOM AIR. NO PAIN REPORTED AT THIS TIME. ALL MEDS GIVEN ORDERED. DIET ON SOFT, MAY ADVANCE TOLERATED. NEEDS ARE MET. SAFETY MEASURES ARE IN PLACE, BED LOW, LOCKED, HEAD OF BED ELEVATED AND CALL LIGHT WITHIN REACH. WILL ENDORSE TO NEXT SHIFT FOR CONTINUITY OF CARE.
--- NOTE | 2020-07-27 19:35 | NUR ---
MS RN OPENING NOTE PATIENT A/OX4; ABLE TO MAKE NEEDS KNOWN. ON ROOM AIR TOLERATING WELL WITH NO SOB. RIGHT WRIST #22G S/L; PATENT AND INTACT. DENIES PAIN OR DISCOMFORT AT THIS TIME. SAFETY MEASURES IN PLACE: BED IN LOWEST LOCKED POSITION, SIDE RAILS UPX2, CALL LIGHT WITHIN EASY REACH, BED ALARMS ON. WILL CONTINUE PLAN OF CARE.
--- NOTE | 2020-07-27 21:20 | NUR ---
MS RN NOTE - BLOOD TRANSFUSION INITIATED PRBC TRANSFUSION AT 50ML/HR. PATIENT NOTED WITH HGB OF 7.5 AND CHARGE NURSE CAROL AWARE. ALL V/S ARE WNL. WILL ASSESS FOR AND A/R, N/N/D, OR RASHES DURING TRANSFUSION.
[2020-07-27] MEDS: ATORVASTATIN 10 MG TABLET PO SCH (22:36)
[2020-07-27] MEDS: CEFTRIAXONE 1 G in IV D5W 50 ML IV SCH (22:38)
--- NOTE | 2020-07-27 22:45 | NUR ---
MS RN NOTE - BLOOD TRANSFUSION PRBC TRANSFUSION AT 75ML/HR. ALL V/S ARE WNL. PATIENT ON ROOM AIR AND TOLERATING WELL. RESPIRATIONS ARE EVEN AND NONLABORED. NO A/R, N/V/D, OR RASHES NOTED.
[2020-07-27] MEDS: HYDROCODONE/APAP 5/325MG TABLET PO PRN (23:25)
[2020-07-28 01:00] VITALS: BP 106/63
--- NOTE | 2020-07-28 01:00 | NUR ---
MS RN NOTE - BLOOD TRANSFUSION COMPLETE FINISHED BLOOD TRANSFUSION; PATIENT TOLERATED PRBC WELL. NO A/R NOTED. ALL VS WNL.
[2020-07-28 06:08] LABS: BASOPHILS # (AUTO) 0.1 /CMM (0.0-0.2); BASOPHILS % (AUTO) 0.9 % (0.0-2.0); EOSINOPHILS % (AUTO) 3.6 % (0.0-6.0); HEMATOCRIT 25 % (33-45); HEMOGLOBIN 8.5 g/dL (11.5-14.8); LYMPHOCYTES # (AUTO) 2.2 /CMM (0.8-4.8); LYMPHOCYTES % (AUTO) 31.2 % (20.0-44.0); MEAN CORPUSCULAR HGB CONC 34 g/dl (31.0-36.0); MEAN CORPUSCULAR VOLUME 92 fL (82-100); MONOCYTES # (AUTO) 0.7 /CMM (0.1-1.30); MONOCYTES % (AUTO) 9.4 % (2.0-12.0); NEUTROPHILS # (AUTO) 3.8 /CMM (1.8-8.9); NEUTROPHILS % (AUTO) 54.9 % (43.0-81.0); PLATELET COUNT (AUTO) 184 /CMM (150-450); RED BLOOD CELL COUNT(AUTO) 2.71 MIL/uL (4.0-5.2)
--- NOTE | 2020-07-28 06:31 | NUR ---
MS RN CLOSING NOTE PATIENT A/OX4; ABLE TO MAKE NEEDS KNOWN. ON ROOM AIR TOLERATING WELL WITH NO SOB. RFA #22G S/L; PATENT AND INTACT. DENIES PAIN OR DISCOMFORT AT THIS TIME. SAFETY MEASURES IN PLACE: BED IN LOWEST LOCKED POSITION, SIDE RAILS UPX3, CALL LIGHT WITHIN EASY REACH, BED ALARMS ON. WILL ENDORSE PLAN OF CARE TO ONCOMING MORNING RN
[2020-07-28 07:01] LABS: CALCIUM, SERUM 7.8 mg/dL (8.5-10.1); CREATININE 0.8 mg/dL (0.6-1.3); PHOSPHORUS 3.1 mg/dL (2.5-4.9); POTASSIUM 4.4 mmol/L (3.5-5.1)
--- NOTE | 2020-07-28 07:35 | NUR ---
MS RN OPENING NOTES RECEIVED PATIENT AWAKE IN BED, A/O X4. PATIENT IS ON ROOM AIR AND IN NO RESPIRATORY DISTRESS. BLOOD TRANSFUSION COMPLETED LAST NIGHT. NO ADVERSE REACTION NOTED AT THIS TIME. NO NAUSEA/VOMITING REPORTED. ALL SAFETY PRECAUTIONS ARE KEPT IN PLACE. SIDE RAILS UP X3. BED ALARM ON. BED IS LOCKED. CALL LIGHT IS WITHIN REACH. WILL CONTINUE TO MONITOR THE PATIENT.
[2020-07-28 08:00] VITALS: BP 126/57
[2020-07-28] MEDS: busPIRone 5 MG TABLET PO SCH ×2 (08:30→16:55)
[2020-07-28] MEDS: VENLAFAXINE XR 75 MG CAP.SR.24H PO SCH (08:30)
[2020-07-28] MEDS: LISINOPRIL (10MG) 10 MG TABLET PO SCH (08:30)
[2020-07-28] MEDS: CHOLECALCIFEROL 1,000 UNIT TABLET (VIT D3) PO SCH (08:30)
[2020-07-28] MEDS: PANTOPRAZOLE 40 MG VIAL IV SCH ×2 (08:31→16:55)
[2020-07-28] MEDS ORDERED: K PHOS NEUTRAL 250 MG TABLET PO ONE (09:30)
[2020-07-28] MEDS ORDERED: CEFAZOLIN 2 GM in IV D5W 100 ML IV SCH (09:30)
[2020-07-28] MEDS: HYDROCODONE/APAP 5/325MG TABLET PO PRN ×3 (09:36→21:10)
--- NOTE | 2020-07-28 12:26 | NUR ---
MS/RN NOTES NO COMPLAINED OF NAUSEA AND VOMITING, BREAKFAST WAS TOLERATED WELL. ADVANCE DIET TO REGULAR. WILL CONTINUE TO MONITOR.
[2020-07-28] MEDS ORDERED: CEFAZOLIN 1 GM VIAL IM SCH (13:00)
[2020-07-28 16:00] VITALS: BP 103/69
[2020-07-28] MEDS: CEFAZOLIN 2 GM in IV D5W 100 ML IV SCH (17:30)
[2020-07-28 18:09] VITALS: BP 103/69
--- NOTE | 2020-07-28 18:46 | NUR ---
MS RN CLOSING NOTES PATIENT IS ALERT AND ORIENTED X4. NO SOB NOTED. ON ROOM AIR. NO PAIN REPORTED AT THIS TIME. ALL MEDS GIVEN ORDERED. DIET ADVANCED TO REGULAR, TOLERATED WELL. NEEDS ARE MET. DR. FERNANDEZ EXTENDED 1 MORE DAY TO CHECK LABS, MAY DC TOMORROW. SAFETY MEASURES ARE IN PLACE, BED LOW, LOCKED, HEAD OF BED ELEVATED AND CALL LIGHT WITHIN REACH. WILL ENDORSE TO NEXT SHIFT FOR CONTINUITY OF CARE.
[2020-07-28 20:00] VITALS: BP 137/74
--- NOTE | 2020-07-28 20:00 | NUR ---
MS OPENING NOTES PATIENT RESTING IN BED, ALERT AND ORIENTED X 4. NO SIGNS OF DISTRESS OR SHORTNESS OF BREATH NOTED. NO COMPLAINTS OF PAIN AT THIS TIME. PATIENT ABLE TO MAKE NEEDS KNOWN. SAFETY MEASURES IN PLACE, BED LOCKED IN LOWEST POSITION, BED ALARM ON AND CALL LIGHT WITHIN REACH. WILL CONTINUE TO MONITOR
[2020-07-28] MEDS: ATORVASTATIN 10 MG TABLET PO SCH (21:09)
[2020-07-29] MEDS: CEFAZOLIN 2 GM in IV D5W 100 ML IV SCH ×2 (01:39→10:18)
[2020-07-29 06:11] LABS: BASOPHILS % (AUTO) 0.7 % (0.0-2.0); EOSINOPHILS % (AUTO) 5.1 % (0.0-6.0); HEMATOCRIT 27 % (33-45); LYMPHOCYTES # (AUTO) 1.2 /CMM (0.8-4.8); MEAN CORPUSCULAR HGB CONC 33 g/dl (31.0-36.0); MEAN CORPUSCULAR VOLUME 93 fL (82-100); MONOCYTES # (AUTO) 0.6 /CMM (0.1-1.30); MONOCYTES % (AUTO) 10.4 % (2.0-12.0); NEUTROPHILS # (AUTO) 3.5 /CMM (1.8-8.9); NEUTROPHILS % (AUTO) 62.8 % (43.0-81.0); PLATELET COUNT (AUTO) 179 /CMM (150-450); WHITE BLOOD COUNT (AUTO) 5.6 K/uL (4.3-11.0)
--- NOTE | 2020-07-29 06:34 | NUR ---
MS OPENING NOTES PATIENT SLEEPING IN BED, ALERT AND ORIENTED X 4. NO SIGNS OF DISTRESS OR SHORTNESS OF BREATH NOTED. NO COMPLAINTS OF PAIN AT THIS TIME. MEDICATIONS GIVEN ORDERED. PATIENT NEEDS ATTENDED TO THROUGHOUT SHIFT.SAFETY MEASURES IN PLACE, BED LOCKED IN LOWEST POSITION, BED ALARM ON AND CALL LIGHT WITHIN REACH. PLAN TO F/U ON AM LABS AND POSSIBLE DC TODAY. WILL ENDORSE TO DAY SHIFT NURSE FOR CONTINUITY OF CARE
[2020-07-29 06:50] LABS: CALCIUM, SERUM 7.6 mg/dL (8.5-10.1); CREATININE 0.8 mg/dL (0.6-1.3); MAGNESIUM 1.6 mg/dL (1.8-2.4); PHOSPHORUS 3.6 mg/dL (2.5-4.9); POTASSIUM 3.9 mmol/L (3.5-5.1)
[2020-07-29] MEDS ORDERED: OMEP20TA20 PO (07:17)
[2020-07-29] MEDS ORDERED: BUSP5TAB3 PO (07:17)
[2020-07-29 08:00] VITALS: BP 138/87
[2020-07-29] MEDS: busPIRone 5 MG TABLET PO SCH ×2 (09:21→17:08)
[2020-07-29] MEDS: CHOLECALCIFEROL 1,000 UNIT TABLET (VIT D3) PO SCH (09:22)
[2020-07-29] MEDS: VENLAFAXINE XR 75 MG CAP.SR.24H PO SCH (09:22)
[2020-07-29] MEDS: LISINOPRIL (10MG) 10 MG TABLET PO SCH (09:23)
[2020-07-29] MEDS: PANTOPRAZOLE 40 MG VIAL IV SCH ×2 (09:23→17:08)
--- NOTE | 2020-07-29 10:00 | NUR ---
RN NOTES ORTHOSTATIC BLOOD PRESSURE TAKEN; LYING 152/74, SITTING 140/63. UN-ABLE TO CHECK STANDING BP BECAUSE PT COMPLAINED OF DIZZINESS, SAM HARRISON AND PHYSICAL THERAPIST RYANNE WERE AT BEDSIDE. BOLUS OF 500ML NS, CT OF LUMBAR/THORACIC SPINE WERE ORDERED. WILL CONTINUE TO MONITOR. Addendum: 07/29/20 at 1004 by TEZ HALL RN ERROR: WRONG PT. SORRY!
[2020-07-29] MEDS: HYDROCODONE/APAP 5/325MG TABLET PO PRN (10:10)
[2020-07-29] MEDS: Magnesium 1GM/D5W 100ML PREMIX 100 ML IV SCH ×2 (10:51→12:34)
--- NOTE | 2020-07-29 10:54 | NUR ---
MS OPENING NOTES: RECEIVED RESIDENT AWAKE IN BED, NO COMPLAIN OF PAIN AND DISCOMFORT, ALERT AND ORIENTED X 4. ON ROOM AIR WITH NO SIGNS OF DISTRESS OR SHORTNESS OF BREATH NOTED. NO COMPLAINTS OF PAIN AT THIS TIME. BED LOCKED IN LOWEST POSITION, BED ALARM ON AND CALL LIGHT WITHIN REACH. PLAN. WILL CONTINUE TO MONITOR
[2020-07-29 16:00] VITALS: BP 126/75
--- NOTE | 2020-07-29 17:41 | NUR ---
RN DISCHARGED NOTES PT DISCHARGED HOME WITH HH IN STABLE CONDITION. PT IS A/O X4. ABLE TO MAKE NEEDS KNOWN. V/S TAKEN, STABLE AND RECORDED. PHOTOS OF SKIN ISSUES TAKEN AND FILED IN HER CHART. IV ACCESS ON RIGHT WRIST REMOVED WITH NO BLEEDING NOTED, DRY DRESSING APPLIED AT SITE. HEALTH TEACHINGS /DISCHARGED INSTRUCTIONS AND CLINIC APPOINTMENT ON 08/05/[address] RODRIGES AT [facility] EXPLAINED AND SHE VERBALIZED UNDERSTANDING. PT LEFT UNIT AT 1730 VIA GURNEY ACCOMPANIED BY 2 EMT'S FROM [facility]. AND ARGELIA MENDEZ AWARE OF DISCHARGE.
== END 2020-07-29 17:30 | disposition home health service (06) | DRG 378 ==
LOC: ER 19:06 → TELE 21:35 → MED 07-26 10:48
PROVIDERS: ADMIT Nurse Practitioner Acute Care; ATTEND Family Medicine
PROC: 0DB68ZX Excision of Stomach, Via Natural or Artificial Opening Endoscopic, Diagnostic (ICD-10-PCS; principal; 2020-07-26)
PROC: 30233N1 Transfusion of Nonautologous Red Blood Cells into Peripheral Vein, Percutaneous Approach (ICD-10-PCS; 2020-07-26)
DX: K25.4 Chronic or unspecified gastric ulcer with hemorrhage (principal); N39.0 Urinary tract infection, site not specified; E44.0 Moderate protein-calorie malnutrition; F33.2 Major depressive disorder, recurrent severe without psychotic features; K44.9 Diaphragmatic hernia without obstruction or gangrene; B96.20 Unspecified Escherichia coli [E. coli] as the cause of diseases classified elsewhere; E78.5 Hyperlipidemia, unspecified; G89.29 Other chronic pain; Z79.01 Long term (current) use of anticoagulants; Z86.711 Personal history of pulmonary embolism; I10 Essential (primary) hypertension; F41.9 Anxiety disorder, unspecified; E88.09 Other disorders of plasma-protein metabolism, not elsewhere classified; F41.0 Panic disorder [episodic paroxysmal anxiety]; Z68.27 Body mass index [BMI] 27.0-27.9, adult; Z82.49 Family history of ischemic heart disease and other diseases of the circulatory system; D50.0 Iron deficiency anemia secondary to blood loss (chronic); Z95.828 Presence of other vascular implants and grafts; Z96.649 Presence of unspecified artificial hip joint
CPT/HCPCS: 36415; 71045-TC; 80048-TC; 80061-TC; 80076-TC; 81001; 82272-TC; 83690-TC; 83735-TC; 84100-TC; 84484-TC; 85025-TC; 85027-TC; 86850-TC; 87081-TC; 87086-TC; 87186-TC; 88305-TC; 88313-TC; 88342; 97116-TC; 97530-TC; C9113; C9803; G0378; J0330; J0690; J0696; J2405; J2704; J3475; J3490; J7030; J7050; J7060; P9016

== ENCOUNTER 2024-08-14 23:59 | Inpatient (IN) | payer MEDICARE, BC ==
[~2024-08-14] VITALS: Ht 162.6 cm; Wt 56.2 kg
[~2024-08-14 23:59] MED LIST changes: -APIX5TAB4 PO; +BUSP5TAB3 PO; +OMEP20TA20 PO
[2024-08-15] MEDS ORDERED: FUROSEMIDE 40 MG/4 ML VIAL ONE (00:59)
[2024-08-15] MEDS: FUROSEMIDE 40 MG/4 ML VIAL IV ONE (01:02)
[2024-08-15 01:13] LABS: BASOPHILS # (AUTO) 0.1 K/uL (0.0-0.2); BASOPHILS % (AUTO) 0.7 % (0.0-2.0); EOSINOPHILS # (AUTO) 0.2 K/uL (0.0-0.7); EOSINOPHILS % (AUTO) 1.8 % (0.0-6.0); HEMATOCRIT 39 % (33-45); HEMOGLOBIN 12.6 g/dL (11.5-14.8); LYMPHOCYTES # (AUTO) 2.6 K/uL (0.8-4.8); MEAN CORPUSCULAR HEMOGLOBIN 29 PG (26.0-33.0); MEAN CORPUSCULAR HGB CONC 33 g/dl (31.0-36.0); MEAN CORPUSCULAR VOLUME 90 fL (82-100); MONOCYTES # (AUTO) 0.7 K/uL (0.1-1.30); MONOCYTES % (AUTO) 7.9 % (2.0-12.0); NEUTROPHILS # (AUTO) 5.8 K/uL (1.8-8.9); NEUTROPHILS % (AUTO) 61.6 % (43.0-81.0); PLATELET COUNT (AUTO) 222 K/uL (150-450); RED CELL DISTRIBUTION WIDTH 13.6 % (11.5-15.0); WHITE BLOOD COUNT (AUTO) 9.4 K/uL (4.3-11.0)
[2024-08-15 01:26] LABS: CALCIUM, SERUM 8.7 mg/dL (8.5-10.1); CARBON DIOXIDE 33 mmol/L (21-32); CHLORIDE 104 mmol/L (98-107); CREATININE 1.2 mg/dL (0.6-1.3); GLUCOSE 92 mg/dL (74-106); POTASSIUM 4.2 mmol/L (3.5-5.1); SODIUM SERUM 140 mmol/L (136-145); UREA NITROGEN, BLOOD 21 mg/dL (7-18)
[2024-08-15 01:31] LABS: LACTIC ACID 1.1 mmol/L (0.4-2.0)
[2024-08-15 01:45] LABS: ALANINE AMINOTRANSFERASE 19 U/L (12-78); ALBUMIN 3.3 g/dL (3.4-5.0); ALKALINE PHOSPHATASE 91 U/L (46-116); ASPARTATE AMINOTRANSFERASE 28 U/L (15-37); BILIRUBIN,DIRECT 0.1 mg/dL (0.0-0.2); BILIRUBIN,TOTAL 0.4 mg/dL (0.2-1.0); NT-PRO BNP 177 pg/mL (0-125); TOTAL PROTEIN, SERUM 7.6 g/dL (6.4-8.2)
[2024-08-15] MEDS ORDERED: VANCOMYCIN 1 GM /D5W 250 ML PB IV ONE (01:58)
[2024-08-15] MEDS: VANCOMYCIN 1 GM in IV D5W 250 ML IV ONE (02:04)
[2024-08-15 02:22] LABS: INR 1.05 (0.91-1.10); PARTIAL THROMBOPLASTIN TIME 28.5 SEC (24.3-34.3); PROTHROMBIN TIME 11.1 SECS (9.2-11.1)
[2024-08-15] MEDS ORDERED: Z GUARD REMEDY 4 OZ OINT TP PRN (02:30)
[2024-08-15 03:05] VITALS: BP 155/94; TEMP 98.4; O2SAT 99
[2024-08-15] MEDS: ONDANSETRON HCL/PF 4 MG/2 ML VIAL IVP PRN (03:50)
[2024-08-15] MEDS: MAG HYDROX/AL HYDROX/SIMETH 30 ML UDC PO PRN (06:04)
[2024-08-15 08:00] VITALS: BP 152/92; TEMP 98.1; O2SAT 97
[2024-08-15] MEDS ORDERED: BUME1TAB8 PO (09:09)
[2024-08-15] MEDS ORDERED: HYDR-4279 PO (09:09)
[2024-08-15] MEDS ORDERED: APIX2.5T PO (09:09)
[2024-08-15] MEDS: PANTOPRAZOLE 40 MG TABLET.DR PO SCH (09:43)
[2024-08-15] MEDS: VANCOMYCIN 500 MG in IV D5W 100ml IV ONE (09:44)
[2024-08-15] MEDS: ENOXAPARIN SODIUM 30 MG/0.3 ML DISP.SYRIN SQ SCH (09:46)
[2024-08-15 12:00] VITALS: BP 142/87; TEMP 98.1; O2SAT 100
[2024-08-15] MEDS: MUPIROCIN OINT 2% 22 GM TUBE TP SCH (13:00)
[2024-08-15] MEDS: CEFAZOLIN 1 GM in IV D5W 50 ML IV SCH (14:20)
[2024-08-15 16:00] VITALS: BP 186/101; TEMP 97.9; O2SAT 98
[2024-08-15] MEDS: IV NS 0.9% 1,000 ML IV SCH (16:38)
[2024-08-15 20:00] VITALS: BP 147/83; TEMP 97.7; O2SAT 99
[2024-08-15] MEDS: BISACODYL SUPP (10 MG) 10 MG/SUPP.RECT SUPP.RECT RC PRN (21:09)
[2024-08-15] MEDS: ZOLPIDEM TARTRATE 5 MG TABLET PO PRN (21:42)
[2024-08-15] MEDS ORDERED: TRAZODONE 50 MG TABLET PO SCH (23:00)
[2024-08-16] VITALS: BP 167/79; TEMP 97.7; TEMP 98.6; O2SAT 100
[2024-08-16] MEDS ORDERED: TRAZODONE 50 MG TABLET PO PRN
[2024-08-16 04:00] VITALS: BP 161/94; TEMP 98.2; O2SAT 100
[2024-08-16 06:29] LABS: BASOPHILS # (AUTO) 0.1 K/uL (0.0-0.2); BASOPHILS % (AUTO) 0.8 % (0.0-2.0); EOSINOPHILS % (AUTO) 0.4 % (0.0-6.0); HEMATOCRIT 37 % (33-45); LYMPHOCYTES % (AUTO) 22.5 % (20.0-44.0); MEAN CORPUSCULAR HEMOGLOBIN 29 PG (26.0-33.0); MEAN CORPUSCULAR HGB CONC 33 g/dl (31.0-36.0); MEAN CORPUSCULAR VOLUME 90 fL (82-100); MONOCYTES # (AUTO) 0.7 K/uL (0.1-1.30); MONOCYTES % (AUTO) 7.7 % (2.0-12.0); NEUTROPHILS # (AUTO) 6.3 K/uL (1.8-8.9); NEUTROPHILS % (AUTO) 68.6 % (43.0-81.0); PLATELET COUNT (AUTO) 213 K/uL (150-450); RED CELL DISTRIBUTION WIDTH 13.7 % (11.5-15.0); WHITE BLOOD COUNT (AUTO) 9.1 K/uL (4.3-11.0)
[2024-08-16] MEDS: MAGNESIUM HYDROXIDE 30 ML UDC PO PRN (06:47)
[2024-08-16 06:56] LABS: CALCIUM, SERUM 8.3 mg/dL (8.5-10.1); CREATININE 1.2 mg/dL (0.6-1.3); MAGNESIUM 2.2 mg/dL (1.8-2.4); PHOSPHORUS 3.1 mg/dL (2.5-4.9); POTASSIUM 4.2 mmol/L (3.5-5.1)
[2024-08-16 08:00] VITALS: BP 137/100; TEMP 97.5; O2SAT 100
[2024-08-16] MEDS ORDERED: VANCOMYCIN 750 MG in IV D5W 250 ML IV SCH (08:00)
[2024-08-16] MEDS ORDERED: NA PHOS,M-B/NA PHOS,DI-BA 1 EA ENEMA RC PRN (10:30)
[2024-08-16 12:00] VITALS: BP 150/83; TEMP 98.2; O2SAT 96
[2024-08-16 16:00] VITALS: BP 154/87; TEMP 98.6; O2SAT 97
[2024-08-16 20:00] VITALS: BP_SYST 148; BP_DIAS 148; BP_DIAS 88; TEMP 97.8; O2SAT 94; O2SAT 99
[2024-08-17] MEDS: ACETAMINOPHEN 325 MG TABLET PO PRN (04:30)
[2024-08-17 07:25] LABS: CALCIUM, SERUM 8.7 mg/dL (8.5-10.1); POTASSIUM 4.1 mmol/L (3.5-5.1)
[2024-08-17 08:00] VITALS: BP 163/99; TEMP 97.7; O2SAT 97
[2024-08-17 08:30] LABS: BASOPHILS # (AUTO) 0.1 K/uL (0.0-0.2); BASOPHILS % (AUTO) 0.8 % (0.0-2.0); EOSINOPHILS # (AUTO) 0.2 K/uL (0.0-0.7); EOSINOPHILS % (AUTO) 1.8 % (0.0-6.0); HEMATOCRIT 39 % (33-45); HEMOGLOBIN 12.9 g/dL (11.5-14.8); LYMPHOCYTES # (AUTO) 1.7 K/uL (0.8-4.8); LYMPHOCYTES % (AUTO) 17.6 % (20.0-44.0); MEAN CORPUSCULAR HEMOGLOBIN 30 PG (26.0-33.0); MEAN CORPUSCULAR HGB CONC 33 g/dl (31.0-36.0); MEAN CORPUSCULAR VOLUME 90 fL (82-100); MONOCYTES # (AUTO) 0.9 K/uL (0.1-1.30); NEUTROPHILS # (AUTO) 6.6 K/uL (1.8-8.9); NEUTROPHILS % (AUTO) 69.8 % (43.0-81.0); PLATELET COUNT (AUTO) 181 K/uL (150-450); RED BLOOD CELL COUNT(AUTO) 4.34 MIL/uL (4.0-5.2); RED CELL DISTRIBUTION WIDTH 13.3 % (11.5-15.0); WHITE BLOOD COUNT (AUTO) 9.5 K/uL (4.3-11.0)
[2024-08-17] MEDS ORDERED: CEPH-570 PO (08:43)
== END 2024-08-17 13:00 | disposition home or self-care (01) | DRG 603 ==
LOC: ER 08-15 00:03 → TELE 08-15 02:49 → MED 08-16 12:18
PROVIDERS: ADMIT Internal Medicine; ATTEND Internal Medicine
DX: L03.115 Cellulitis of right lower limb (principal); E44.0 Moderate protein-calorie malnutrition; I13.0 Hypertensive heart and chronic kidney disease with heart failure and stage 1 through stage 4 chronic kidney disease, or unspecified chronic kidney disease; I87.311 Chronic venous hypertension (idiopathic) with ulcer of right lower extremity; L97.518 Non-pressure chronic ulcer of other part of right foot with other specified severity; L03.116 Cellulitis of left lower limb; E78.5 Hyperlipidemia, unspecified; E88.09 Other disorders of plasma-protein metabolism, not elsewhere classified; F32.9 Major depressive disorder, single episode, unspecified; I50.9 Heart failure, unspecified; I87.2 Venous insufficiency (chronic) (peripheral); K21.9 Gastro-esophageal reflux disease without esophagitis; M89.8X9 Other specified disorders of bone, unspecified site; E83.9 Disorder of mineral metabolism, unspecified; N18.9 Chronic kidney disease, unspecified; Z86.711 Personal history of pulmonary embolism; Z86.718 Personal history of other venous thrombosis and embolism; Z68.21 Body mass index [BMI] 21.0-21.9, adult
CPT/HCPCS: 36415; 71045-TC; 74018; 80048-TC; 80076-TC; 80202-TC; 83605-TC; 83735-TC; 83880; 84100-TC; 84484-TC; 85025-TC; 85730-TC; 87040-TC; 87081-TC; 93307-TC; 93970-TC; 97116-TC; 97530-TC; A4223; G0378; J0690; J1650; J1938; J2405; J3370; J3371; J7030; J7060